=== PATIENT | male | born 1985 | race Caucasian/White ===

== ENCOUNTER 2021-07-27 03:57 | Inpatient (IN) ==
[2021-07-27] MEDS ORDERED: SODIUM CHLORIDE 0.9% 1000ML 1,000 ML IV ONE ×2 (04:42→05:55)
[2021-07-27] MEDS ORDERED: ACETAMINOPHEN 1,000 MG/100 ML VIAL IV STA (04:42)
[2021-07-27] MEDS ORDERED: ONDANSETRON INJ 2 MG/ML 2 ML VIAL IV STA ×2 (04:42→06:34)
[2021-07-27 04:58] LABS: Basophils # (auto) 0.01 K/uL (0-0.2); Basophils % (auto) 0.1 %; Hematocrit (blood only) 41.5 % (42-52); Hemoglobin 14.5 g/dL (14.0-18.0); Immature Granulocytes # (auto) 0.03 K/uL (0.00-0.02); Immature Granulocytes % (auto) 0.4 %; Lymphocytes # (auto) 0.47 K/uL (1.2-3.4); Lymphocytes % (auto) 6.5 %; Mean Corpuscular Hemoglobin 28.7 pg (25-34); Mean Corpuscular Hgb Conc 34.9 g/dL (32-36); Mean Corpuscular Volume 82.2 fL (80-100); Mean Platelet Volume 9.7 fL (7.4-10.4); Monocytes # (auto) 0.48 K/uL (0.11-0.59); Monocytes % (auto) 6.6 %; Neutrophils # (auto) 6.23 K/uL (1.4-6.5); Neutrophils % (auto) 86.4 %; Platelet Count 251 K/uL (130-400); RDW Coefficient of Variation 13.3 % (11.5-14.5); RDW Standard Deviation 40.4 fL (36.4-46.3); Red Blood Count 5.05 M/uL (4.7-6.1); White Blood Count 7.22 K/uL (4.8-10.8)
[2021-07-27 05:13] LABS: Alanine Aminotransferase 64 U/L (12-78); Albumin Level 3.6 gm/dl (3.4-5.0); Aspartate Aminotransferase 68 U/L (15-37); BUN Creatinine Ratio 12.9 (10-20); Blood Urea Nitrogen 15 mg/dl (7-18); Calcium 8.5 mg/dl (8.5-10.1); Carbon Dioxide 28 mmol/L (21-32); Chloride 95 mmol/L (98-107); Creatinine Clr Calc Pharmacy 109.8 ml/min; Est GFR (African American) 91.5 ml/min; Est GFR (Non-African American) 78.9 ml/min; Glucose 115 mg/dl (70-99); Magnesium 2.3 mg/dl (1.8-2.4); Potassium 3.3 mmol/L (3.5-5.1); Sodium 129 mmol/L (136-145)
[2021-07-27 05:18] LABS: Albumin Globulin Ratio 0.8 (0.9-2); Alkaline Phosphatase 64 U/L (45-117); Bilirubin,Total 0.7 mg/dl (0.2-1); Globulin 4.5 gm/dl (2.5-4.0); NT Pro B Type Natriuretic Pept 17 pg/ml (0-450); Total Protein 8.1 gm/dl (6.4-8.2); Troponin I < 0.015 ng/ml (0-0.045)
[2021-07-27] MEDS ORDERED: POTASSIUM CHLORIDE CRTAB 20 MEQ TABCR PO STA (05:55)
--- NOTE | 2021-07-27 05:59 | Emergency Department Note ---
History of Present Illness General Chief complaint: Shortness of Breath/Dyspnea Stated complaint: BREATHING DIFFICULTY Time Seen by Provider: 07/27/21 04:35 Source: patient Mode of arrival: EMS Limitations: no limitations History of Present Illness Provider complaint: nausea, vomiting, cough Onset (ago): week(s) 1 Maximum Pain Intensity: 5 Associated symptoms: + cough, + fever/chills, + headaches, + loss of appetite, + malaise, + nausea/vomiting, + shortness of breath and + weakness Treatments prior to arrival: NSAID This is 35-year-old male who presents to the emergency department due to concern for worsening symptoms related to known Covid. Patient states he was diagnosed officially on Friday but was symptomatic last . 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 He states in the intervening days his has also become sick. Patient states he started with a cough, nasal congestion, rhinorrhea, but since Friday has now had nausea, vomiting, and diarrhea. Patient states he has not eaten in greater than 24 hours and feels increasingly weak. Patient states he feels it is hard to breathe particularly with exertion or laying flat. Patient states he was given an inhaler and placed on steroids as an outpatient by his PCP. He states he does not feel these are helping. He denies leg swelling, rash or sores. Denies overt chest pain or abdominal pain. 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 Home Medications Medication Instructions Recorded Confirmed Type methylprednisolone 4 mg tablets in See Rx Instructions .ROUTE 07/23/21 07/27/21 Rx a dose pack (Medrol (Michael)) .COMPLEX #21 ea albuterol sulfate 90 mcg/actuation 2 inh INHALATION Q4H PRN #6.7 g 07/24/21 07/27/21 Rx aerosol inhaler allopurinol 300 mg tablet 300 mg PO DAILY 07/27/21 07/27/21 History escitalopram oxalate 10 mg tablet 10 mg PO DAILY 07/27/21 07/27/21 History lisinopril 10 mg tablet 10 mg PO DAILY 07/27/21 07/27/21 History meloxicam 15 mg tablet 15 mg PO DAILY 07/27/21 07/27/21 History omeprazole 20 mg capsule,delayed 230 mg PO DAILY 07/27/21 07/27/21 History release Allergies Allergy/AdvReac Type Severity Reaction Status Date / Time No Known Allergies Allergy Unverified 07/27/21 07:08 Past Med/Surg History Medical History Depression GERD (gastroesophageal reflux disease) Hypertension Surgical History S/P cholecystectomy Social History Smoking Status: Never smoker Hx Alcohol Use: No Hx Substance Use: No Preferred Language: Citizen Of [place] Communication Ability: Effective [place]ummer Required: No Beliefs That Will Affect Care: None Current Living Situation: Spouse Other Information That Helps Us Care for You: No Feels Safe at Home: Yes Safety Concerns: Feels Safe At This Time Assistive Devices: Oxygen - Continuous Review of Systems A total of 10 systems reviewed and were otherwise negative All systems reviewed & are unremarkable except as noted in HPI & below Physical Exam Vital Signs Vital Signs - 24 hr 07/27/21 04:05 07/27/21 04:06 07/27/21 05:00 Temperature 37.2 C Temperature Source Oral Pulse Rate 104 H 108 H 112 H Pulse Rate from SpO2 Sensor 104 H 111 H Respiratory Rate 22 20 14 Respiratory Effort / Characteristics Non-Labored Spontaneous Respiratory Depth Normal Respiratory Pattern Regular Blood Pressure 160/94 H 160/94 H 173/100 H Blood Pressure Mean 116 116 124 Blood Pressure Position Lying Pulse Oximetry 93 94 92 Oxygen Delivery Method Nasal Cannula Nasal Cannula Nasal Cannula Oxygen Flow Rate 1 1 1 Sepsis Recent Fever Within 48 Hours No Sepsis New/Unexplained Change in Mental Status N/A Sepsis Action Taken by Nursing No Action Required 07/27/21 06:00 07/27/21 07:00 Temperature 37.0 C Temperature Source Pulse Rate 102 H 95 H Pulse Rate from SpO2 Sensor 102 H 99 H Respiratory Rate 22 22 Respiratory Effort / Characteristics Respiratory Depth Respiratory Pattern Blood Pressure 134/72 Blood Pressure Mean 92 Blood Pressure Position Pulse Oximetry 93 93 Oxygen Delivery Method Oxymask Oxymask Oxygen Flow Rate 3 4 Sepsis Recent Fever Within 48 Hours Sepsis New/Unexplained Change in Mental Status Sepsis Action Taken by Nursing GENERAL: alert, unwell appearing, well nourished, no distress, non-toxic, BMI>40 EYE EXAM: normal conjunctiva, PERRL and EOM's grossly intact OROPHARYNX: no exudate, no erythema, lips, buccal mucosa, and tongue normal and mucous membranes are moist NECK: supple, no nuchal rigidity, no adenopathy, non-tender LUNGS: Clear to auscultation. Normal chest wall mechanics, no w/r/r HEART: no murmurs, S1 normal and S2 normal ABDOMEN: abdomen soft, non-tender, normo-active bowel sounds, no masses, no rebound or guarding. BACK: Back is symmetrical on inspection and there is no deformity, no midline tenderness, no CVA tenderness. SKIN: no rashes and no bruising UPPER EXTREMITIES: upper extremities are grossly normal. FROM, nml pulses b/l. LOWER EXTREMITIES: No pitting edema. FROM, nml pulses b/l. NEURO EXAM: Normal sensorium, cranial nerves II-XII grossly intact, normal speech, no gross weakness of arms, no gross weakness of legs. Gross sensation intact. Course Course 15: Pt states he feels more SOB and is still nauseated. Administered Medications Acetaminophen (Acetaminophen 325 Mg Tab) 650 mg PO Q4H PRN PRN Reason: pain/fever Stop: 08/26/21 10:59 Last Admin: 07/29/21 08:13 Dose: 650 mg Documented by: [id number] Admin: 07/29/21 02:39 Dose: 650 mg Documented by: [id number] Admin: 07/28/21 20:54 Dose: 650 mg Documented by: [id number] Admin: 07/27/21 14:13 Dose: 650 mg Documented by: [id number] Allopurinol (Allopurinol 300 Mg Tab) 300 mg PO DAILY [facility] Stop: 08/26/21 10:59 Last Admin: 07/29/21 08:14 Dose: 300 mg Documented by: [id number] Admin: 07/28/21 09:06 Dose: 300 mg Documented by: [id number] Admin: 07/27/21 14:14 Dose: 300 mg Documented by: [id number] Benzonatate (Benzonatate 100 Mg Capsule) 100 mg PO TID [facility] Stop: 08/26/21 13:59 Last Admin: 07/29/21 22:41 Dose: 100 mg Documented by: [id number] Admin: 07/29/21 13:54 Dose: 100 mg Documented by: [id number] Admin: 07/29/21 08:14 Dose: 100 mg Documented by: [id number] Admin: 07/28/21 20:54 Dose: 100 mg Documented by: [id number] Admin: 07/28/21 13:11 Dose: 100 mg Documented by: [id number] Admin: 07/28/21 09:06 Dose: 100 mg Documented by: [id number] Admin: 07/28/21 00:02 Dose: 100 mg Documented by: [id number] Admin: 07/27/21 14:14 Dose: 100 mg Documented by: [id number] Enoxaparin Sodium (Enoxaparin Inj 40 Mg/0.4 Ml Syr) 40 mg SQ Q12H JOSS Stop: 08/26/21 10:59 Last Admin: 07/29/21 22:48 Dose: 40 mg Documented by: [id number] Admin: 07/29/21 08:16 Dose: Not Given Documented by: [id number] Admin: 07/28/21 20:56 Dose: 40 mg Documented by: [id number] Admin: 07/28/21 09:07 Dose: 40 mg Documented by: [id number] Admin: 07/28/21 00:02 Dose: 40 mg Documented by: [id number] Admin: 07/27/21 14:14 Dose: 40 mg Documented by: [id number] Escitalopram Oxalate (Escitalopram Oxalate 10 Mg Tab) 10 mg PO DAILY JOSS Stop: 08/26/21 10:59 Last Admin: 07/29/21 08:14 Dose: 10 mg Documented by: [id number] Admin: 07/28/21 09:06 Dose: 10 mg Documented by: [id number] Admin: 07/27/21 14:14 Dose: 10 mg Documented by: [id number] Guaifenesin/Dextromethorphan (Guaifenesin/Dextrom Syrup 100mg/10mg 5ml Udc) 5 ml PO Q6H PRN PRN Reason: Cough Stop: 08/26/21 13:00 Last Admin: 07/29/21 05:55 Dose: 5 ml Documented by: [id number] Admin: 07/28/21 20:54 Dose: 5 ml Documented by: [id number] Admin: 07/28/21 01:07 Dose: 5 ml Documented by: [id number] Admin: 07/27/21 14:26 Dose: 5 ml Documented by: [id number] Remdesivir 100 mg/ Sodium (Chloride) 250 mls @ 250 mls/hr IV DAILY@1200 JOSS; Protocol Stop: 07/31/21 12:59 Last Infusion: 07/29/21 13:59 Dose: 0 mls/hr Documented by: [id number] Admin: 07/29/21 12:21 Dose: 250 mls/hr Documented by: [id number] Infusion: 07/28/21 13:39 Dose: 0 mls/hr Documented by: [id number] Admin: 07/28/21 12:13 Dose: 250 mls/hr Documented by: [id number] Dexamethasone 6 mg/ Syringe 1.5 mls @ 1 mls/min IV DAILY [facility] Stop: 08/06/21 08:59 Last Admin: 07/29/21 08:14 Dose: 1 mls/min Documented by: [id number] Admin: 07/28/21 09:06 Dose: 1 mls/min Documented by: [id number] Lactobacillus Acidoph/Casei/Rhamnos (Advanced Probiotic 1250 Mg Capsule) 1 cap PO TIDM JOSS Stop: 08/28/21 16:59 Last Admin: 07/29/21 19:32 Dose: 1 cap Documented by: [id number] Levalbuterol HCl (Levalbuterol Hcl 0.63 Mg/3 Ml Neb) 0.63 mg NEB QIDR PRN PRN Reason: Wheezing Stop: 08/26/21 10:59 Last Admin: 07/29/21 08:01 Dose: 0.63 mg Documented by: [id number] Lisinopril (Lisinopril 10 Mg Tab) 10 mg PO DAILY [facility] Stop: 08/26/21 10:59 Last Admin: 07/29/21 08:14 Dose: 10 mg Documented by: [id number] Admin: 07/28/21 09:06 Dose: 10 mg Documented by: [id number] Admin: 07/27/21 14:14 Dose: 10 mg Documented by: [id number] Loperamide HCl (Loperamide Hcl 2 Mg Cap) 2 mg PO Q6H PRN PRN Reason: Diarrhea Stop: 08/27/21 09:17 Last Admin: 07/28/21 10:41 Dose: 2 mg Documented by: [id number] Ondansetron HCl (Ondansetron Inj 2 Mg/Ml 2 Ml Vial) 4 mg IV Q6H PRN PRN Reason: Nausea Stop: 08/26/21 10:59 Last Admin: 07/28/21 20:55 Dose: 4 mg Documented by: [id number] Admin: 07/28/21 10:41 Dose: 4 mg Documented by: [id number] Admin: 07/27/21 22:38 Dose: 4 mg Documented by: [id number] Pantoprazole Sodium (Pantoprazole 40 Mg Tab) 40 mg PO DAILY JOSS Stop: 08/26/21 08:59 Last Admin: 07/29/21 08:14 Dose: 40 mg Documented by: [id number] Admin: 07/28/21 09:06 Dose: 40 mg Documented by: [id number] Admin: 07/27/21 09:14 Dose: 40 mg Documented by: [id number] Sodium Chloride (Sodium Chloride 0.9% 10ml Flush) 30 ml IV Q24H JOSS Stop: 07/31/21 11:01 Last Admin: 07/29/21 13:54 Dose: 30 ml Documented by: [id number] Admin: 07/28/21 12:14 Dose: 30 ml Documented by: [id number] Admin: 07/27/21 14:13 Dose: 30 ml Documented by: [id number] Tramadol HCl (Tramadol Hcl 50 Mg Tablet) 25 - 50 mg PO Q4H PRN PRN Reason: Pain Stop: 08/28/21 21:39 Last Admin: 07/29/21 22:40 Dose: 50 mg Documented by: [id number] Discontinued Medications Dexamethasone Sodium Phosphate (DexamethasonePf 10 Mg/Ml Vial) 6 mg IV NOW ONE Stop: 07/27/21 06:35 Last Admin: 07/27/21 07:17 Dose: 6 mg Documented by: [id number] Furosemide (Furosemide 40 Mg Tab) 40 mg PO ONE ONE Stop: 07/28/21 13:52 Last Admin: 07/28/21 14:48 Dose: 40 mg Documented by: [id number] Sodium Chloride (Nss 1000ml) 1,000 mls @ 999 mls/hr IV .Q1H1M ONE Stop: 07/27/21 05:42 Last Infusion: 07/27/21 06:32 Dose: 0 mls/hr Documented by: [id number] Admin: 07/27/21 05:21 Dose: 999 mls/hr Documented by: [id number] Acetaminophen (Ofirmev) 1,000 mg in 100 mls @ 400 mls/hr IV NOW STA Stop: 07/27/21 04:56 Last Infusion: 07/27/21 05:52 Dose: 0 mls/hr Documented by: [id number] Admin: 07/27/21 05:21 Dose: 400 mls/hr Documented by: [id number] Sodium Chloride (Nss 1000ml) 1,000 mls @ 999 mls/hr IV .Q1H1M ONE Stop: 07/27/21 06:55 Last Infusion: 07/27/21 07:11 Dose: 0 mls/hr Documented by: [id number] Admin: 07/27/21 06:11 Dose: 999 mls/hr Documented by: [id number] Remdesivir 200 mg/ Sodium (Chloride) 250 mls @ 125 mls/hr IV ONE STA; Protocol Stop: 07/27/21 10:32 Last Infusion: 07/27/21 14:39 Dose: 0 mls/hr Documented by: [id number] Admin: 07/27/21 09:15 Dose: 125 mls/hr Documented by: [id number] Potassium Chloride/Sodium Chloride (Normal Saline W/20 Meq Kcl) 20 meq in 1,000 mls @ 60 mls/hr IV .[id number] ONE Stop: 07/28/21 03:39 Last Infusion: 07/28/21 05:38 Dose: 0 mls/hr Documented by: [id number] Admin: 07/27/21 14:15 Dose: 60 mls/hr Documented by: [id number] Tocilizumab 800 mg/ Sodium (Chloride) 100 mls @ 100 mls/hr IV NOW ONE; Protocol Stop: 07/29/21 11:59 Last Infusion: 07/29/21 12:31 Dose: 0 mls/hr Documented by: [id number] Admin: 07/29/21 11:15 Dose: 100 mls/hr Documented by: [id number] Famotidine 20 mg/ Syringe 5 mls @ 2.5 mls/min IV 2145 ONE Stop: 07/29/21 21:46 Last Admin: 07/29/21 22:41 Dose: 2.5 mls/min Documented by: [id number] Ioversol (Optiray 320 125ml) 120 ml IV ONCE ONE Stop: 07/27/21 23:13 Last Admin: 07/27/21 23:07 Dose: 120 ml Documented by: [id number] Lactobacillus Acidophilus (Lactobacillus Acidophilus 1 Gm Pack) 1 gm PO TIDM JOSS Stop: 08/27/21 11:59 Last Admin: 07/29/21 16:58 Dose: Not Given Documented by: [id number] Admin: 07/29/21 13:54 Dose: 1 gm Documented by: [id number] Admin: 07/29/21 08:15 Dose: 1 gm Documented by: [id number] Admin: 07/28/21 17:29 Dose: 1 gm Documented by: [id number] Admin: 07/28/21 12:12 Dose: 1 gm Documented by: [id number] Levalbuterol HCl (Levalbuterol Hcl 0.63 Mg/3 Ml Neb) 0.63 mg NEB QIDR JOSS Stop: 08/26/21 10:59 Last Admin: 07/28/21 07:11 Dose: 0.63 mg Documented by: [id number] Admin: 07/27/21 20:10 Dose: 0.63 mg Documented by: [id number] Admin: 07/27/21 16:46 Dose: 0.63 mg Documented by: [id number] Admin: 07/27/21 16:46 Dose: Not Given Documented by: [id number] Melatonin (Melatonin 3 Mg Tab) Confirm Administered Dose 3 mg PO .STK-MED ONE Stop: 07/29/21 22:54 Last Admin: 07/29/21 22:54 Dose: 3 mg Documented by: [id number] Morphine Sulfate (Morphine Sulfate 2 Mg/Ml Carp) 2 mg IV NOW STA Stop: 07/29/21 19:17 Last Admin: 07/29/21 19:32 Dose: 2 mg Documented by: [id number] Ondansetron HCl (Ondansetron Inj 2 Mg/Ml 2 Ml Vial) 4 mg IV NOW STA Stop: 07/27/21 04:43 Last Admin: 07/27/21 05:21 Dose: 4 mg Documented by: [id number] Ondansetron HCl (Ondansetron Inj 2 Mg/Ml 2 Ml Vial) 4 mg IV NOW STA Stop: 07/27/21 06:35 Last Admin: 07/27/21 07:17 Dose: 4 mg Documented by: [id number] Potassium Chloride (Potassium Chloride Crtab 20 Meq Tabcr) 40 meq PO NOW STA Stop: 07/27/21 05:56 Last Admin: 07/27/21 06:06 Dose: 40 meq Documented by: [id number] Tramadol HCl (Tramadol Hcl 50 Mg Tablet) 50 mg PO ONE ONE Stop: 07/29/21 16:58 Last Admin: 07/29/21 17:03 Dose: 50 mg Documented by: [id number] Medical Decision Making Differential Diagnosis Differential: Gastroenteritis, Food Borne, Esophageal Perforation, , Electrolyte Abnormality, Dehydration, Intraabdominal Infection, UTI/Pyelonephritis, Bowel Obstruction, Biliary Pathology, amongst other pathology entertained. Medical Records Attestation: I reviewed the patient's medical records. Home Medications Current Medication List: was personally reviewed by me Laboratory Data Attestation: I reviewed the patient's lab results. Result diagrams: 07/29/21 05:40 07/29/21 05:40 Lab Results 07/27/21 07/27/21 07/27/21 Range/Units 04:13 04:13 04:13 WBC 7.22 (4.8-10.8) K/uL RBC 5.05 (4.7-6.1) M/uL Hgb 14.5 (14.0-18.0) g/dL Hct 41.5 L (42-52) % MCV 82.2 (80-100) fL MCH 28.7 (25-34) pg MCHC 34.9 (32-36) g/dL RDW Std Deviation 40.4 (36.4-46.3) fL RDW Coeff of Zulema 13.3 (11.5-14.5) % Plt Count 251 (130-400) K/uL MPV 9.7 (7.4-10.4) fL Immature Gran % (Auto) 0.4 % Neut % (Auto) 86.4 % Lymph % (Auto) 6.5 % Winkler % (Auto) 6.6 % Eos % (Auto) 0.0 % Baso % (Auto) 0.1 % Neut # (Auto) 6.23 (1.4-6.5) K/uL Lymph # (Auto) 0.47 L (1.2-3.4) K/uL Winkler # (Auto) 0.48 (0.11-0.59) K/uL Eos # (Auto) 0.00 (0-0.5) K/uL Baso # (Auto) 0.01 (0-0.2) K/uL Immature Gran # (Auto) 0.03 H (0.00-0.02) K/uL D-Dimer (0-500) ug/L FEU Sodium 129 L (136-145) mmol/L Potassium 3.3 L (3.5-5.1) mmol/L Chloride 95 L (98-107) mmol/L Carbon Dioxide 28 (21-32) mmol/L Anion Gap 6.0 (3-11) BUN 15 (7-18) mg/dl Creatinine 1.18 (0.6-1.4) mg/dl Est Cr Clr Drug Dosing 109.8 ml/min Est GFR ( Amer) 91.5 ml/min Est GFR (Non-Af Amer) 78.9 ml/min BUN/Creatinine Ratio 12.9 (10-20) Glucose 115 H (70-99) mg/dl Calcium 8.5 (8.5-10.1) mg/dl Magnesium 2.3 (1.8-2.4) mg/dl Ferritin 1437.5 H (8-388) ng/ml Total Bilirubin 0.7 (0.2-1) mg/dl AST 68 H (15-37) U/L ALT 64 (12-78) U/L Alkaline Phosphatase 64 (45-117) U/L Troponin I < 0.015 (0-0.045) ng/ml C-Reactive Protein 8.66 H (0-0.29) mg/dl NT-Pro-B Natriuret Pep 17 (0-450) pg/ml Total Protein 8.1 (6.4-8.2) gm/dl Albumin 3.6 (3.4-5.0) gm/dl Globulin 4.5 H (2.5-4.0) gm/dl Albumin/Globulin Ratio 0.8 L (0.9-2) Procalcitonin (0-0.5) ng/ml COVID-19 Eval Order SARS-CoV-2 (PCR) (Negative) 07/27/21 07/27/21 07/27/21 Range/Units 04:13 04:13 07:21 WBC (4.8-10.8) K/uL RBC (4.7-6.1) M/uL Hgb (14.0-18.0) g/dL Hct (42-52) % MCV (80-100) fL MCH (25-34) pg MCHC (32-36) g/dL RDW Std Deviation (36.4-46.3) fL RDW Coeff of Zulema (11.5-14.5) % Plt Count (130-400) K/uL MPV (7.4-10.4) fL Immature Gran % (Auto) % Neut % (Auto) % Lymph % (Auto) % Winkler % (Auto) % Eos % (Auto) % Baso % (Auto) % Neut # (Auto) (1.4-6.5) K/uL Lymph # (Auto) (1.2-3.4) K/uL Winkler # (Auto) (0.11-0.59) K/uL Eos # (Auto) (0-0.5) K/uL Baso # (Auto) (0-0.2) K/uL Immature Gran # (Auto) (0.00-0.02) K/uL D-Dimer 1130 H* (0-500) ug/L FEU Sodium (136-145) mmol/L Potassium (3.5-5.1) mmol/L Chloride (98-107) mmol/L Carbon Dioxide (21-32) mmol/L Anion Gap (3-11) BUN (7-18) mg/dl Creatinine (0.6-1.4) mg/dl Est Cr Clr Drug Dosing ml/min Est GFR ( Amer) ml/min Est GFR (Non-Af Amer) ml/min BUN/Creatinine Ratio (10-20) Glucose (70-99) mg/dl Calcium (8.5-10.1) mg/dl Magnesium (1.8-2.4) mg/dl Ferritin (8-388) ng/ml Total Bilirubin (0.2-1) mg/dl AST (15-37) U/L ALT (12-78) U/L Alkaline Phosphatase (45-117) U/L Troponin I (0-0.045) ng/ml C-Reactive Protein (0-0.29) mg/dl NT-Pro-B Natriuret Pep (0-450) pg/ml Total Protein (6.4-8.2) gm/dl Albumin (3.4-5.0) gm/dl Globulin (2.5-4.0) gm/dl Albumin/Globulin Ratio (0.9-2) Procalcitonin 0.05 (0-0.5) ng/ml COVID-19 Eval Order Covid19 at [facility] SARS-CoV-2 (PCR) (Negative) 07/27/21 Range/Units 07:21 WBC (4.8-10.8) K/uL RBC (4.7-6.1) M/uL Hgb (14.0-18.0) g/dL Hct (42-52) % MCV (80-100) fL MCH (25-34) pg MCHC (32-36) g/dL RDW Std Deviation (36.4-46.3) fL RDW Coeff of Zulema (11.5-14.5) % Plt Count (130-400) K/uL MPV (7.4-10.4) fL Immature Gran % (Auto) % Neut % (Auto) % Lymph % (Auto) % Winkler % (Auto) % Eos % (Auto) % Baso % (Auto) % Neut # (Auto) (1.4-6.5) K/uL Lymph # (Auto) (1.2-3.4) K/uL Winkler # (Auto) (0.11-0.59) K/uL Eos # (Auto) (0-0.5) K/uL Baso # (Auto) (0-0.2) K/uL Immature Gran # (Auto) (0.00-0.02) K/uL D-Dimer (0-500) ug/L FEU Sodium (136-145) mmol/L Potassium (3.5-5.1) mmol/L Chloride (98-107) mmol/L Carbon Dioxide (21-32) mmol/L Anion Gap (3-11) BUN (7-18) mg/dl Creatinine (0.6-1.4) mg/dl Est Cr Clr Drug Dosing ml/min Est GFR ( Amer) ml/min Est GFR (Non-Af Amer) ml/min BUN/Creatinine Ratio (10-20) Glucose (70-99) mg/dl Calcium (8.5-10.1) mg/dl Magnesium (1.8-2.4) mg/dl Ferritin (8-388) ng/ml Total Bilirubin (0.2-1) mg/dl AST (15-37) U/L ALT (12-78) U/L Alkaline Phosphatase (45-117) U/L Troponin I (0-0.045) ng/ml C-Reactive Protein (0-0.29) mg/dl NT-Pro-B Natriuret Pep (0-450) pg/ml Total Protein (6.4-8.2) gm/dl Albumin (3.4-5.0) gm/dl Globulin (2.5-4.0) gm/dl Albumin/Globulin Ratio (0.9-2) Procalcitonin (0-0.5) ng/ml COVID-19 Eval Order SARS-CoV-2 (PCR) POSITIVE A* (Negative) Imaging Data My Impression: X-ray: I interpreted the following studies. Chest: A single view study of the chest was reviewed and was negative for cardiomegaly, effusion, pulmonary edema, or wide mediastinum. Scattered b/l infiltrates. Radiologist's Impression: Chest X-Ray 07/27/21 04:42 SINGLE VIEW CHEST CLINICAL HISTORY: Cough. Covid. FINDINGS: An AP, portable, upright chest radiograph is compared to study dated 07/23/2021. The cardiomediastinal silhouette is unremarkable. Multifocal airspace consolidation is seen throughout both lungs. This has significantly worsened as compared to 07/23/2021. No large pleural effusion or pneumothorax is seen. The bony thorax is grossly intact. IMPRESSION: Multifocal airspace consolidation is consistent with the reported history of a viral pneumonia. This has significantly worsened as compared to 07/23/2021. ACT 112: Negative or not required by law. Electronically signed by: Syed Waite M.D. 07/27/2021 7:10 AM ECG Data Attestation: I personally reviewed and interpreted this ECG as follows: Indication: + nausea and + vomiting Rate (beats per minute): 103 Rhythm: + normal sinus ECG Intervals/blocks: + Normal QRS and + Normal QT ECG [place]on: + Normal ECG ST segments: + Normal ST segments MDM Narrative This is an ill appearing 35 yo with known COVID who presents due to worsening symptoms and and concern for dehydration. Labs with mild abnormalities noted, CXR consistent with COVID pneumonia. VS stable however patient tachycardic and complained of feeling SOB. Sats initially around 90% on RA, however pt felt markedly improved with oxygen in place. 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 Given weakness and reported increased VAIL, ambulatory test of pulse ox was not performed. I did discuss all results with the patient at bedside and due to concern for condition and increased SOB and oxygen requirement, will discuss with hospitalist for inpatient treatment. An order was placed for continuous cardiac monitoring. The monitor shows a rate of _106_ with sinus tachycardia__ rhythm. Impression & Plan Weakness, Dyspnea, Dehydration, COVID-19, Acute hyponatremia, Hypokalemia Discharge Plan Visit Data Chief Complaint: Shortness of Breath/Dyspnea Stated Complaint: BREATHING DIFFICULTY ED Provider: Uzma Gipson Discharge Problem: Weakness, Dyspnea, Dehydration, COVID-19, Acute hyponatremia, Hypokalemia Patient Disposition: Admitted As Inpatient Discharge Instructions Interventions: ED Discharge Assessment Last Done: 07/27/21 10:50 Discharge Problem: Dyspnea Qualifiers: Dyspnea type: shortness of breath Qualified Code(s): R06.02 - Shortness of breath
[2021-07-27] MEDS ORDERED: dexAMETHasone**PF** 10 MG/ML VIAL IV ONE (06:34)
--- NOTE | 2021-07-27 07:12 | XRay Report ---
SINGLE VIEW CHEST CLINICAL HISTORY: Cough. Covid. FINDINGS: An AP, portable, upright chest radiograph is compared to study dated 07/23/2021. The cardio mediastinal silhouette is unremarkable. Multifocal airspace consolidation is seen throughout both krista gs. This has significantly worsened as compared to 07/23/2021. No large pleural effusion or pneumotho rax is seen. The bony thorax is grossly intact. IMPRESSION: Multifocal airspace consolidation is consistent with the reported history of a viral pneu monia. This has significantly worsened as compared to 07/23/2021. ACT 112: Negative or not required by law. Electronically signed by: Syed Waite M.D. 07/27/2021 7:10 AM
--- NOTE | 2021-07-27 08:09 | History & Physical Report ---
Date of Service July 27, 2021 Assessment & Plan (1) COVID: Plan: Multifocal COVID pneumonia Hypoxia COVID Screen:+ on 07/23/21 CXR:Multifocal airspace consolidation is consistent with the reported history of a viral pneumonia. This has significantly worsened as compared to 07/23/2021. Procalcitonin:0.05 Troponin negative CRP:8.66 Ferritin: 1437 D-Dimer:1130 Blood Cultures obtained Start on Remdesivir, Dexamethasone Day #1 Isolation precautions--Airborne/Contact Encourage frequent Proning Lasix, Albuterol PRN Continue Supplemental Oxygen as needed DVT prophylaxis: Lovenox Monitor LFTs, renal function while on Remdesivir CT for PE pending Pulmonary toilet Hyponatremia Hypokalemia Hypochloremia Secondary to poor oral intake, GI losses Stool studies to rule out infection Replace electrolytes as needed Monitor Received IV fluids GERD Continue PPI Depression Continue home medication Gout Continue allopurinol Hypertension Continue lisinopril DVT Px: Lovenox SQ CODE STATUS Full code History of Present Illness Chief Complaint: Cough, shortness of breath Primary Care Provider: NO PCP Patient is a 35-year-old male with history of GERD, hypertension, GERD, depression and other medical problems presents with history of worsening cough, shortness of breath since about 1 week duration. Patient reports associated fever since Friday which currently resolved. He also states having nausea, vomiting, diarrhea since Friday. He was tested positive for Covid on 07/23/20 and was prescribed a Medrol Dosepak and an inhaler which he has been using since 4 days duration. Given worsening of his symptoms, patient came to ED for further evaluation. He admits to have contact with his who is positive for Covid as well. She states having pleuritic kind of chest pain associated with deep breathing and cough. Also reports headache but no change in vision, loss of consciousness, neck stiffness. He feels tired and has generalized weakness, runny nose and very poor appetite with loss of taste since 1 week duration. Denies any history of palpitations, dizziness, pedal edema, hemoptysis, head trauma, abdominal pain, blood in stools, dysuria, hematuria. Allergies Allergy/AdvReac Type Severity Reaction Status Date / Time No Known Allergies Allergy Unverified 07/27/21 07:08 Home Medications Medication Instructions Recorded Confirmed Type methylprednisolone 4 mg tablets in See Rx Instructions .ROUTE 07/23/21 07/27/21 Rx a dose pack (Medrol (Michael)) .COMPLEX #21 ea albuterol sulfate 90 mcg/actuation 2 inh INHALATION Q4H PRN #6.7 g 07/24/21 07/27/21 Rx aerosol inhaler allopurinol 300 mg tablet 300 mg PO DAILY 07/27/21 07/27/21 History escitalopram oxalate 10 mg tablet 10 mg PO DAILY 07/27/21 07/27/21 History lisinopril 10 mg tablet 10 mg PO DAILY 07/27/21 07/27/21 History meloxicam 15 mg tablet 15 mg PO DAILY 07/27/21 07/27/21 History omeprazole 20 mg capsule,delayed 230 mg PO DAILY 07/27/21 07/27/21 History release Past Med/Surg History Medical History Depression GERD (gastroesophageal reflux disease) Hypertension Surgical History S/P cholecystectomy Social History Smoking Status: Never smoker Hx Alcohol Use: No Hx Substance Use: No Preferred Language: Hungarian Communication Ability: Effective [employer] Required: No Beliefs That Will Affect Care: None Current Living Situation: Spouse Other Information That Helps Us Care for You: No Feels Safe at Home: Yes Safety Concerns: Feels Safe At This Time Review of Systems Review of Systems: All systems reviewed & are unremarkable except as noted in Subjective Physical Exam Physical Exam: Physical Exam: Vitals signs as noted above General Appearance:Morbidly Obese, no apparent distress Head: normocephalic, Atraumatic Eyes: normal inspection, EOMI Neck: supple, Trachea midline Respiratory/Chest: Decreased breath sounds, CTA, No accessory muscle use Cardiovascular: S1, S2, No murmur Abdomen/GI:Soft, Non tender, Bowel sounds present Extremities/Musculoskeletal:normal inspection, no edema Neurologic/Psych:AAOX3, grossly no focal neurological deficits Skin: normal color, warm Results & Data Results & Data ([facility]) Vital Signs (Past 12 Hours) Vital Signs Temp Pulse Resp BP Pulse Ox 07/27/21 07:00 37.0 C 95 H 22 134/72 93 07/27/21 06:00 102 H 22 93 07/27/21 05:00 112 H 14 173/100 H 92 07/27/21 04:06 37.2 C 108 H 20 160/94 H 94 07/27/21 04:05 104 H 22 160/94 H 93 Laboratory Results Short CBC 07/27/21 Range/Units 04:13 WBC 7.22 (4.8-10.8) K/uL Hgb 14.5 (14.0-18.0) g/dL Hct 41.5 L (42-52) % Plt Count 251 (130-400) K/uL BMP 07/27/21 04:13 Sodium 129 L Potassium 3.3 L Chloride 95 L Carbon Dioxide 28 BUN 15 Creatinine 1.18 Glucose 115 H Calcium 8.5 Cardiac Enzymes 07/27/21 07/27/21 Range/Units 04:13 13:02 Troponin I < 0.015 < 0.015 (0-0.045) ng/ml Liver Function 07/27/21 Range/Units 04:13 Total Bilirubin 0.7 (0.2-1) mg/dl AST 68 H (15-37) U/L ALT 64 (12-78) U/L Alkaline Phosphatase 64 (45-117) U/L Albumin 3.6 (3.4-5.0) gm/dl Diagnostic Findings CXR: Multifocal airspace consolidation is consistent with the reported history of a viral pneumonia. This has significantly worsened as compared to 07/23/2021.
[2021-07-27] MEDS ORDERED: REMDESIVIR 200 MG in SODIUM CHLORIDE 0.9% 210 ML IV STA (08:33)
[2021-07-27] MEDS: PANTOprazole 40 MG TAB PO SCH (09:14)
[2021-07-27 09:42] LABS: D Dimer 1130 ug/L FEU (0-500)
[2021-07-27 09:52] LABS: C Reactive Protein 8.66 mg/dl (0-0.29); Ferritin 1437.5 ng/ml (8-388)
--- NOTE | 2021-07-27 10:59 | Electrocardiogram Report ---
Test Reason : Blood Pressure : / mmHG Vent. Rate : 103 BPM Atrial Rate : 103 BPM P-R Int : 144 ms QRS Dur : 086 ms QT Int : 324 ms P-R-T Axes : 042 052 009 degrees QTc Int : 424 ms Sinus tachycardia Otherwise normal ECG No previous ECGs available Confirmed by Lorenzo Galvez ([id number]) on 07/27/2021 10:58:53 AM Referred By: REFERRED SELF Confirmed By:Lorenzo Galvez
[2021-07-27] MEDS ORDERED: NSS + 20MEQ KCL 20 MEQ/1,000 ML BAG IV ONE (11:00)
[2021-07-27] MEDS ORDERED: POLYETHYLENE (MIRALAX) 17 GM PACK PO PRN (11:00)
[2021-07-27] MEDS: SODIUM CHLORIDE 0.9% 10ML FLUSH IV SCH (14:13)
[2021-07-27] MEDS: ACETAMINOPHEN 325 MG TAB PO PRN (14:13)
[2021-07-27] MEDS: ENOXAPARIN INJ 40 MG/0.4 ML SYR SQ SCH (14:14)
[2021-07-27] MEDS: ESCITALOPRAM OXALATE 10 MG TAB PO SCH (14:14)
[2021-07-27] MEDS: allopurinoL 300 MG TAB PO SCH (14:14)
[2021-07-27] MEDS: BENZONATATE 100 MG CAPSULE PO SCH (14:14)
[2021-07-27] MEDS: lisinopril 10 MG TAB PO SCH (14:14)
[2021-07-27] MEDS: guaiFENesin/DEXTROM SYRUP 100MG/10MG 5ML UDC PO PRN (14:26)
--- NOTE | 2021-07-27 15:19 | Electrocardiogram Report ---
Test Reason : Blood Pressure : / mmHG Vent. Rate : 095 BPM Atrial Rate : 095 BPM P-R Int : 146 ms QRS Dur : 088 ms QT Int : 344 ms P-R-T Axes : 050 064 011 degrees QTc Int : 432 ms Normal sinus rhythm Normal ECG When compared with ECG of 27-JUL-2021 04:02, No significant change was found Confirmed by Kelvin Carmona ([id number]) on 07/27/2021 3:18:37 PM Referred By: REFERRED SELF Confirmed By:Kelvin Carmona
[2021-07-27] MEDS: LEVALBUTEROL HCL 0.63 MG/3 ML NEB NEB SCH ×3 (16:46→20:10)
[2021-07-27] MEDS: ONDANSETRON INJ 2 MG/ML 2 ML VIAL IV PRN (22:38)
[2021-07-27] MEDS ORDERED: OPTIRAY 320 125ml IV ONE (23:12)
[2021-07-28] MEDS: BENZONATATE 100 MG CAPSULE PO SCH ×4 (00:02→20:54)
[2021-07-28] MEDS: ENOXAPARIN INJ 40 MG/0.4 ML SYR SQ SCH ×3 (00:02→20:56)
[2021-07-28] MEDS: guaiFENesin/DEXTROM SYRUP 100MG/10MG 5ML UDC PO PRN ×2 (01:07→20:54)
[2021-07-28 06:32] LABS: Hemoglobin 13.3 g/dL (14.0-18.0); Mean Corpuscular Hemoglobin 29.3 pg (25-34); Mean Corpuscular Hgb Conc 35.9 g/dL (32-36); Mean Corpuscular Volume 81.5 fL (80-100); Mean Platelet Volume 9.4 fL (7.4-10.4); Platelet Count 297 K/uL (130-400); RDW Coefficient of Variation 13.6 % (11.5-14.5); RDW Standard Deviation 41.2 fL (36.4-46.3); Red Blood Count 4.54 M/uL (4.7-6.1); White Blood Count 6.72 K/uL (4.8-10.8)
[2021-07-28 07:05] LABS: BUN Creatinine Ratio 14.9 (10-20); C Reactive Protein 10.7 mg/dl (0-0.29); Calcium 8.6 mg/dl (8.5-10.1); Creatinine Clr Calc Pharmacy 144.2 ml/min; Est GFR (African American) 127.5 ml/min; Magnesium 2.5 mg/dl (1.8-2.4); Potassium 3.6 mmol/L (3.5-5.1)
[2021-07-28] MEDS: LEVALBUTEROL HCL 0.63 MG/3 ML NEB NEB SCH (07:11)
[2021-07-28] MEDS ORDERED: LEVALBUTEROL HCL 0.63 MG/3 ML NEB NEB PRN (08:27)
--- NOTE | 2021-07-28 08:44 | CT Scan Report ---
CT ANGIOGRAPHY OF THE CHEST, PULMONARY EMBOLUS PROTOCOL CLINICAL HISTORY: Shortness of breath. Covid. Evaluate for pulmonary embolus. COMPARISON STUDY: Chest radiograph July 23, 2021 and July 27, 2021. TECHNIQUE: Following IV administration of 120 mL of Optiray, helical axial images of the chest were o btained utilizing the pulmonary embolus protocol. Maximal intensity projections and sagittal and cor onal reformats were viewed on an independent 3D workstation. IV contrast was administered without co mplication. Automated exposure control was utilized for the study. A dose lowering technique was ut ilized adhering to the principles of ALARA. CT DOSE: 908.11 mGy.cm FINDINGS: No pulmonary emboli are identified although the segmental and subsegmental pulmonary arter ies are suboptimally assessed on this exam. There is no thoracic aortic dissection. No pericardial ef fusion is present. Size of the heart is at the upper limits of normal. There are prominent mediastina l and bilateral hilar lymph nodes. No pneumothorax or pleural effusion is noted. Extensive multifocal groundglass opacities with developing consolidation within the lungs are noted. There is hepatic kimberly atosis. IMPRESSION: 1. No pulmonary emboli identified although segmental and subsegmental pulmonary arteries suboptimally assessed due to respiratory motion. 2. Extensive multifocal groundglass opacities with developing consolidation within the lungs consiste nt with viral pneumonia. 3. Hepatic steatosis. ACT 112: Negative or not required by law. Electronically signed by: Alejandro Corley M.D. 07/28/2021 8:43 AM
[2021-07-28] MEDS: ESCITALOPRAM OXALATE 10 MG TAB PO SCH (09:06)
[2021-07-28] MEDS: dexAMETHasone 6 MG in SYRINGE 0 ML IV SCH (09:06)
[2021-07-28] MEDS: allopurinoL 300 MG TAB PO SCH (09:06)
[2021-07-28] MEDS: lisinopril 10 MG TAB PO SCH (09:06)
[2021-07-28] MEDS: PANTOprazole 40 MG TAB PO SCH (09:06)
[2021-07-28] MEDS ORDERED: LOPERAMIDE HCL 2 MG CAP PO PRN (09:18)
[2021-07-28] MEDS: ONDANSETRON INJ 2 MG/ML 2 ML VIAL IV PRN ×2 (10:41→20:55)
[2021-07-28] MEDS: LACTOBACILLUS ACIDOPHILUS 1 GM PACK PO SCH ×2 (12:12→17:29)
[2021-07-28] MEDS: REMDESIVIR 100 MG in SODIUM CHLORIDE 0.9% 230 ML IV SCH (12:13)
[2021-07-28] MEDS: SODIUM CHLORIDE 0.9% 10ML FLUSH IV SCH (12:14)
[2021-07-28] MEDS ORDERED: FUROSEMIDE 40 MG TAB PO ONE (13:51)
--- NOTE | 2021-07-28 15:52 | Hospitalist Progress Note ---
Date of Service July 28, 2021 Assessment & Plan (1) COVID: Plan: Multifocal COVID pneumonia Hypoxia COVID Screen:+ on 07/23/21 CTA:Extensive multifocal groundglass opacities with developing consolidation within the lungs consistent with viral pneumonia. No PE. Procalcitonin:0.05 Troponin negative CRP:8.66 Ferritin: 1437 D-Dimer:1130 Blood Cultures No growth to date Continue Remdesivir, Dexamethasone Day #2 Isolation precautions--Airborne/Contact Encourage frequent Proning Lasix, Albuterol PRN Continue Supplemental Oxygen as needed DVT prophylaxis: Lovenox Monitor LFTs, renal function while on Remdesivir Pulmonary toilet Give a small dose of Lasix to keep him on right side Hyponatremia Hypokalemia Hypochloremia Secondary to poor oral intake, GI losses Stool studies negative Replace electrolytes as needed Monitor Received IV fluids GERD Continue PPI Depression Continue home medication Gout Continue allopurinol Hypertension Continue lisinopril DVT Px: Lovenox SQ CODE STATUS Full code Admission and Anticipated Discharge Date Admission Date: July 27, 2021 Subjective Patient is seen and examined at bedside Pleuritic chest pain resolved Diarrhea slowly improving Less cough, dyspnea today Saturating low 90s on 8 L supplemental oxygen Offers no other complaints Review of Systems Review of Systems: All systems reviewed & are unremarkable except as noted in Subjective Physical Exam Physical Exam: Physical Exam: Vitals signs as noted above General Appearance:Morbidly Obese, no apparent distress Head: normocephalic, Atraumatic Eyes: normal inspection, EOMI Neck: supple, Trachea midline Respiratory/Chest: Decreased breath sounds, minimal basal crackles Cardiovascular: S1, S2, No murmur Abdomen/GI:Soft, Non tender, Bowel sounds present Extremities/Musculoskeletal:normal inspection, no edema Neurologic/Psych:AAOX3, grossly no focal neurological deficits Skin: normal color, warm Results & Data Results & Data ([facility]) Vital Signs (Past 12 Hours) Vital Signs Temp Pulse Pulse Resp BP Pulse Ox 07/28/21 12:09 36.6 C 82 15 129/78 92 07/28/21 07:58 36.9 C 88 24 154/66 H 93 07/28/21 07:12 89 26 H 87 L 07/28/21 05:23 95 H 07/28/21 04:11 36.5 C 90 24 125/66 94 Laboratory Results Short CBC 07/28/21 Range/Units 05:51 WBC 6.72 (4.8-10.8) K/uL Hgb 13.3 L (14.0-18.0) g/dL Hct 37.0 L (42-52) % Plt Count 297 (130-400) K/uL [facility] 07/28/21 05:51 Sodium 132 L Potassium 3.6 Chloride 100 Carbon Dioxide 25 BUN 13 Creatinine 0.89 Glucose 101 H Calcium 8.6
[2021-07-28] MEDS: ACETAMINOPHEN 325 MG TAB PO PRN (20:54)
[2021-07-29] MEDS: ACETAMINOPHEN 325 MG TAB PO PRN ×2 (02:39→08:13)
[2021-07-29] MEDS: guaiFENesin/DEXTROM SYRUP 100MG/10MG 5ML UDC PO PRN (05:55)
[2021-07-29 06:16] LABS: Hematocrit (blood only) 39.5 % (42-52); Hemoglobin 13.6 g/dL (14.0-18.0); Mean Corpuscular Hemoglobin 28.8 pg (25-34); Mean Corpuscular Hgb Conc 34.4 g/dL (32-36); Mean Corpuscular Volume 83.5 fL (80-100); Mean Platelet Volume 9.5 fL (7.4-10.4); Platelet Count 325 K/uL (130-400); RDW Coefficient of Variation 13.6 % (11.5-14.5); RDW Standard Deviation 41.4 fL (36.4-46.3); Red Blood Count 4.73 M/uL (4.7-6.1); White Blood Count 9.47 K/uL (4.8-10.8)
[2021-07-29 06:51] LABS: BUN Creatinine Ratio 17.1 (10-20); Calcium 8.7 mg/dl (8.5-10.1); Creatinine Clr Calc Pharmacy 142.8 ml/min; Est GFR (African American) 126.9 ml/min; Est GFR (Non-African American) 109.5 ml/min; Magnesium 2.8 mg/dl (1.8-2.4); Potassium 3.7 mmol/L (3.5-5.1)
[2021-07-29] MEDS: BENZONATATE 100 MG CAPSULE PO SCH ×3 (08:14→22:41)
[2021-07-29] MEDS: lisinopril 10 MG TAB PO SCH (08:14)
[2021-07-29] MEDS: ESCITALOPRAM OXALATE 10 MG TAB PO SCH (08:14)
[2021-07-29] MEDS: dexAMETHasone 6 MG in SYRINGE 0 ML IV SCH (08:14)
[2021-07-29] MEDS: allopurinoL 300 MG TAB PO SCH (08:14)
[2021-07-29] MEDS: PANTOprazole 40 MG TAB PO SCH (08:14)
[2021-07-29] MEDS: LACTOBACILLUS ACIDOPHILUS 1 GM PACK PO SCH ×3 (08:15→16:58)
[2021-07-29] MEDS: ENOXAPARIN INJ 40 MG/0.4 ML SYR SQ SCH ×2 (08:16→22:48)
[2021-07-29 08:42] LABS: HCO3 ABG 26 mmol/L (19-24); Oxygen Saturation ABG 90.8 % (90-95); PCO2 ABG 39 mmHg (35-46); PO2 ABG 57 mmHg (80-95); pH ABG 7.44 (7.35-7.45)
[2021-07-29 08:56] LABS: Allen Test Pos (Pos)
--- NOTE | 2021-07-29 09:50 | XRay Report ---
XR chest 1V portable CLINICAL HISTORY: COVID TECHNIQUE: Single frontal radiograph of the chest was obtained. Comparison: Comparison is made to chest one view 07/27/2021 FINDINGS: No lines and tubes are seen. The cardiomediastinal silhouette is obscured. Lungs are underinflated. M ultifocal airspace opacities are seen, increased from prior exam. No evidence of pleural effusion or pneumothorax. IMPRESSION: Diffuse airspace opacities, increased from prior exam, compatible with pneumonia. ACT 112: Negative or not required by law. Electronically signed by: Stephen Deleon M.D. 07/29/2021 9:48 AM
[2021-07-29] MEDS ORDERED: TOCILIZUMAB 800 MG in 0.9 % SODIUM CHLORIDE 60 ML IV ONE (11:00)
[2021-07-29] MEDS: REMDESIVIR 100 MG in SODIUM CHLORIDE 0.9% 230 ML IV SCH (12:21)
--- NOTE | 2021-07-29 13:16 | Pulmonary Consultation ---
Date of Consultation July 29, 2021 Assessment & Plan (1) COVID: (2) Acute hypoxemic respiratory failure: Impression: 35-year-old male without significant prior medical history admitted with Covid pneumonitis which is progressed significantly over the last 12 hours to the point that he is now on high flow. He is participating in self proning. He received remdesivir although he is 10 days out from his symptoms so I doubt it would offer him any clinical benefit at this point time. His CRP was elevated and he does meet criteria for Tocilizumab. Recommendations: 1. Acute hypoxemic respiratory failure: Continue high flow oxygen. Could consider BiPAP as needed but early intubation may be beneficial if the patient demonstrates increased work of breathing or respiratory muscle fatigue. If he progresses to intubation mechanical ventilation we have a low threshold for reaching out to tertiary facilities for consideration of ECMO. Discussed case with the current plant clerk as well as with the charge nurse on the floor. The patient will be moved to a room which is capable of critical care support. Will also consult critical care services in the event the patient should continue to decline. 2. Covid pneumonitis: Discontinue remdesivir as he is outside the window to offer any clinical benefit. Continue dexamethasone 6 mg daily. Meets criteria for Tocilizumab. Discussed with pharmacy and this will be initiated. 3. Recommend the patient continue to self proning is much as possible. If he fails and requires intubation mechanical ventilation, neuromuscular blockade and proning may be of benefit although review of his CAT scan does demonstrate that his airspace opacity is fairly dense in the posterior lung field so I am unclear how much improvement in his shunt fraction he will experience with proning. 4. Management of the patient's other medical issues is deferred to the primary admitting service. 50 minutes critical care time spent evaluation management stabilization of this patient. History of Present Illness Attending Physician: Js Vergara MD History of Present Illness Asked by hospitalist to evaluate this patient with hypoxemic respiratory failure and Covid pneumonitis. History is obtained from the electronic medical record as well as discussion with patient. Patient is a 35-year-old obese male without prior history. He was not vaccinated for Covid. He has been symptomatic with cough and shortness of b reath for 7 days. He also had fevers. His outpatient Covid test was + 07/23/2021. He had increasing pleuritic chest pain as well as headaches and presented to the emergency room for evaluation 07/27/2021. He was found to be hypoxemic and placed on 8 L. He was initiated on remdesivir and dexamethasone and admitted to the floor. Overnight the patient has had escalation in his oxygen requirement. He is currently on high flow oxygen at 40 L/min and 80% and participating in self proning. He states that he feels somewhat better. He is not describing his work of breathing is excessive at this current time. Allergies Allergy/AdvReac Type Severity Reaction Status Date / Time No Known Allergies Allergy Unverified 07/27/21 07:08 Home Medications Medication Instructions Recorded Confirmed Type methylprednisolone 4 mg tablets in See Rx Instructions .ROUTE 07/23/21 07/27/21 Rx a dose pack (Medrol (Michael)) .COMPLEX #21 ea albuterol sulfate 90 mcg/actuation 2 inh INHALATION Q4H PRN #6.7 g 07/24/21 07/27/21 Rx aerosol inhaler allopurinol 300 mg tablet 300 mg PO DAILY 07/27/21 07/27/21 History escitalopram oxalate 10 mg tablet 10 mg PO DAILY 07/27/21 07/27/21 History lisinopril 10 mg tablet 10 mg PO DAILY 07/27/21 07/27/21 History meloxicam 15 mg tablet 15 mg PO DAILY 07/27/21 07/27/21 History omeprazole 20 mg capsule,delayed 230 mg PO DAILY 07/27/21 07/27/21 History release Patient History Medical History Depression GERD (gastroesophageal reflux disease) Hypertension Surgical History S/P cholecystectomy Social History Smoking Status: Never smoker Hx Alcohol Use: No Hx Substance Use: No Preferred Language: Maltese Communication Ability: Effective [employer] Required: No Beliefs That Will Affect Care: None Current Living Situation: Spouse Other Information That Helps Us Care for You: No Feels Safe at Home: Yes Safety Concerns: Feels Safe At This Time Assistive Devices: Oxygen - Continuous Review of Systems Review of Systems: All systems reviewed & are unremarkable except as noted in HPI & below Physical Exam Constitutional: WD/WN, vitals as above Neck: trachea midline, no thyromegaly Respiratory: + labored breathing Auscultation: + rales; no wheezes Cardiovascular: RRR, no murmur, no edema Gastrointestinal (Abdomen): normal bowel sounds, soft, nontender, no hepatosplenomegaly Musculoskeletal: Extremities: extremities normal to inspection Skin: no rashes, warm and dry Neurologic: Nonfocal exam Lymphatic: no cervical lymphadenopathy Results & Data Results & Data ([facility]) Vital Signs (Past 12 Hours) Vital Signs Temp Pulse Pulse Resp BP Pulse Ox 07/29/21 12:36 65 31 H 94 07/29/21 12:15 36.6 C 69 24 124/64 93 07/29/21 11:23 36.8 C 72 18 142/68 H 95 07/29/21 08:03 71 28 H 92 07/29/21 08:01 71 28 H 92 07/29/21 07:35 36.5 C 71 74 18 142/69 H 92 07/29/21 06:10 85 L 07/29/21 02:59 36.8 C 67 17 128/68 92 07/29/21 02:51 67 Laboratory Results 07/29/21 05:40 07/29/21 05:[address] ANGIOGRAPHY OF THE CHEST, PULMONARY EMBOLUS PROTOCOL CLINICAL HISTORY: Shortness of breath. Covid. Evaluate for pulmonary embolus. COMPARISON STUDY: Chest radiograph July 23, 2021 and July 27, 2021. TECHNIQUE: Following IV administration of 120 mL of Optiray, helical axial images of the chest were obtained utilizing the pulmonary embolus protocol. Maximal intensity projections and sagittal and coronal reformats were viewed on an independent 3D workstation. IV contrast was administered without complication. Automated exposure control was utilized for the study. A dose lowering technique was utilized adhering to the principles of ALARA. CT DOSE: 908.11 mGy.cm FINDINGS: No pulmonary emboli are identified although the segmental and subsegmental pulmonary arteries are suboptimally assessed on this exam. There is no thoracic aortic dissection. No pericardial effusion is present. Size of the heart is at the upper limits of normal. There are prominent mediastinal and bilateral hilar lymph nodes. No pneumothorax or pleural effusion is noted. E xtensive multifocal groundglass opacities with developing consolidation within the lungs are noted. There is hepatic steatosis. IMPRESSION: 1. No pulmonary emboli identified although segmental and subsegmental pulmonary arteries suboptimally assessed due to respiratory motion. 2. Extensive multifocal groundglass opacities with developing consolidation within the lungs consistent with viral pneumonia. 3. Hepatic steatosis. PG Care Time/CCT Total # of Minutes Spent Total Time Spent with Patient: Total time spent is greater than 50% in coordination of care (as documented) at patient's floor/unit and/or counseling patient: Coding Level of Care Code Critical Care 1st 30-74 mins Diagnoses COVID U07.1 Acute hypoxemic respiratory failure J96.01 Time Spent (min) 50
[2021-07-29] MEDS: SODIUM CHLORIDE 0.9% 10ML FLUSH IV SCH (13:54)
--- NOTE | 2021-07-29 15:26 | Hospitalist Progress Note ---
Date of Service July 29, 2021 Assessment & Plan (1) COVID: Plan: Multifocal COVID pneumonia Hypoxia COVID Screen:+ on 07/23/21 CTA:Extensive multifocal groundglass opacities with developing consolidation within the lungs consistent with viral pneumonia. No PE. Procalcitonin:0.05 Troponin negative CRP:8.66 Ferritin: 1437 D-Dimer:1130 Blood Cultures No growth to date Continue Remdesivir, Dexamethasone Day #3 Given Tocilizumab today (07/29/21) Isolation precautions--Airborne/Contact Encourage frequent Proning Lasix, Albuterol PRN Continue Supplemental Oxygen as needed DVT prophylaxis: Lovenox Monitor LFTs, renal function while on Remdesivir Pulmonary toilet Appreciate pulmonology input Continue BiPAP as needed Low threshold to transfer to ICU Updated patient's family over the phone Hyponatremia Hypokalemia Hypochloremia Secondary to poor oral intake, GI losses Stool studies negative Replace electrolytes as needed Monitor Received IV fluids GERD Continue PPI Depression Continue home medication Gout Continue allopurinol Hypertension Continue lisinopril DVT Px: Lovenox SQ CODE STATUS Full code Admission and Anticipated Discharge Date Admission Date: July 27, 2021 Subjective Patient is seen and examined at bedside Currently on BiPAP Desaturating earlier today requiring BiPAP Patient states feeling comfortable after being placed on BiPAP Diarrhea, Pleuritic chest pain resolved Persistent cough Offers no other complaints Updated patient's over the phone Review of Systems Review of Systems: All systems reviewed & are unremarkable except as noted in Subjective Physical Exam Physical Exam: Physical Exam: Vitals signs as noted above General Appearance:Morbidly Obese, no apparent distress Head: normocephalic, Atraumatic Eyes: normal inspection, EOMI Neck: supple, Trachea midline Respiratory/Chest: Decreased breath sounds, CTA Cardiovascular: S1, S2, No murmur Abdomen/GI:Soft, Non tender, Bowel sounds present Extremities/Musculoskeletal:normal inspection, no edema Neurologic/Psych:AAOX3, grossly no focal neurological deficits Skin: normal color, warm Results & Data Results & Data ([facility]) Vital Signs (Past 12 Hours) Vital Signs Temp Pulse Pulse Resp BP Pulse Ox 07/29/21 15:04 36.6 C 60 24 107/49 L 92 07/29/21 14:05 65 31 H 94 07/29/21 12:36 65 31 H 94 07/29/21 12:15 36.6 C 69 24 124/64 93 07/29/21 11:23 36.8 C 72 18 142/68 H 95 07/29/21 08:03 71 28 H 92 07/29/21 08:01 71 28 H 92 07/29/21 07:35 36.5 C 71 74 18 142/69 H 92 07/29/21 06:10 85 L Laboratory Results Short CBC 07/29/21 Range/Units 05:40 WBC 9.47 (4.8-10.8) K/uL Hgb 13.6 L (14.0-18.0) g/dL Hct 39.5 L (42-52) % Plt Count 325 (130-400) K/uL BMP 07/29/21 05:40 Sodium 134 L Potassium 3.7 Chloride 100 Carbon Dioxide 27 BUN 15 Creatinine 0.90 Glucose 126 H Calcium 8.7 Liver Function 07/29/21 Range/Units 05:40 AST 53 H (15-37) U/L ALT 61 (12-78) U/L
[2021-07-29] MEDS ORDERED: traMADol HCL 50 MG TABLET PO ONE (16:57)
[2021-07-29] MEDS ORDERED: Nursing to Pharmacy Communication SCH (17:00)
--- NOTE | 2021-07-29 17:13 | Critical Care Consultation ---
Date of Consultation July 29, 2021 Assessment & Plan (1) COVID: (2) Acute hypoxemic respiratory failure: Impression: 35-year-old male without significant prior medical history admitted with Covid pneumonitis which is progressed significantly over the last 12 hours to the point that he is now on CPAP pressure of 8 at 70% FiO2. He is participating in self proning. He received remdesivir although he is 10 days out from his symptoms so I doubt it would offer him any clinical benefit at this point time. His CRP was elevated and he does meet criteria for Tocilizumab. Recommendations: 1. Acute hypoxemic respiratory failure: Continue noninvasive mechanical ventilation. If he progresses to intubation mechanical ventilation we have a low threshold for reaching out to tertiary facilities for consideration of ECMO. 2. Covid pneumonitis: Discontinue remdesivir as he is outside the window to offer any clinical benefit. Continue dexamethasone 6 mg daily. Meets criteria for Tocilizumab. This has been initiated by pulmonary. 3. Recommend the patient continue to self proning is much as possible. If he fails and requires intubation mechanical ventilation, neuromuscular blockade and proning may be of benefit although review of his CAT scan does demonstrate that his airspace opacity is fairly dense in the posterior lung field so I am unclear how much improvement in his shunt fraction he will experience with proning. History of Present Illness Reason for Consultation: Acute hypoxic respiratory failure Attending Physician: Js Vergara MD History of Present Illness Patient is a 35-year-old male with a significant past medical history of morbid obesity BMI greater than 40, hypertension, who was recently diagnosed with Covid pneumonia approximately 2 weeks ago who has had progressive worsening shortness of breath and increasing oxygen requirements. Currently the patient is requiring noninvasive mechanical ventilation and may require intubation so I been consulted to further evaluate and manage the patient. Allergies Allergy/AdvReac Type Severity Reaction Status Date / Time No Known Allergies Allergy Unverified 07/27/21 07:08 Home Medications Medication Instructions Recorded Confirmed Type methylprednisolone 4 mg tablets in See Rx Instructions .ROUTE 07/23/21 07/27/21 Rx a dose pack (Medrol (Michael)) .COMPLEX #21 ea albuterol sulfate 90 mcg/actuation 2 inh INHALATION Q4H PRN #6.7 g 07/24/21 07/27/21 Rx aerosol inhaler allopurinol 300 mg tablet 300 mg PO DAILY 07/27/21 07/27/21 History escitalopram oxalate 10 mg tablet 10 mg PO DAILY 07/27/21 07/27/21 History lisinopril 10 mg tablet 10 mg PO DAILY 07/27/21 07/27/21 History meloxicam 15 mg tablet 15 mg PO DAILY 07/27/21 07/27/21 History omeprazole 20 mg capsule,delayed 230 mg PO DAILY 07/27/21 07/27/21 History release Patient History Medical History Depression GERD (gastroesophageal reflux disease) Hypertension Surgical History S/P cholecystectomy Social History Smoking Status: Never smoker Hx Alcohol Use: No Hx Substance Use: No Preferred Language: French Communication Ability: Effective Delivery Rn Required: No Beliefs That Will Affect Care: None Current Living Situation: Spouse Other Information That Helps Us Care for You: No Feels Safe at Home: Yes Safety Concerns: Feels Safe At This Time Assistive Devices: Oxygen - Continuous Physical Exam Physical Exam: General: Alert. nontoxic. Skin: Warm, dry, Head: Atraumatic Ears, nose, mouth and throat: airway patent, BiPAP mask in place Cardiovascular: Normal peripheral perfusion Respiratory: no respiratory distress, tachypnea Gastrointestinal: Non distended Musculoskeletal: No deformity Results & Data Results & Data ([facility]) Vital Signs (Past 12 Hours) Vital Signs Temp Pulse Pulse Resp BP Pulse Ox 07/29/21 15:24 64 07/29/21 15:04 36.6 C 60 24 107/49 L 92 07/29/21 14:05 65 31 H 94 07/29/21 12:36 65 31 H 94 07/29/21 12:15 36.6 C 69 24 124/64 93 07/29/21 11:23 36.8 C 72 18 142/68 H 95 07/29/21 08:03 71 28 H 92 07/29/21 08:01 71 28 H 92 07/29/21 07:35 36.5 C 71 74 18 142/69 H 92 07/29/21 06:10 85 L Laboratory Results 10/24/21 10/24/21 10/24/21 Range/Units 08:11 05:40 05:40 WBC (4.8-10.8) K/uL RBC (4.7-6.1) M/uL Hgb (14.0-18.0) g/dL Hct (42-52) % MCV (80-100) fL MCH (25-34) pg MCHC (32-36) g/dL RDW Std Deviation (36.4-46.3) fL RDW Coeff of Zulema (11.5-14.5) % Plt Count (130-400) K/uL MPV (7.4-10.4) fL ABG pH 7.44 (7.35-7.45) ABG pCO2 39 (35-46) mmHg ABG pO2 57 L (80-95) mmHg ABG HCO3 26 H (19-24) mmol/L ABG O2 Saturation 90.8 (90-95) % ABG Base Excess 2.0 H (-9-1.8) mEq/L Jayy Test Pos (Pos) Barometric Pressure 735.3 mm/Hg Oxygen Given 40 L Sodium 134 L (136-145) mmol/L Potassium 3.7 (3.5-5.1) mmol/L Chloride 100 (98-107) mmol/L Carbon Dioxide 27 (21-32) mmol/L Anion Gap 7.0 (3-11) BUN 15 (7-18) mg/dl Creatinine 0.90 (0.6-1.4) mg/dl Est Cr Clr Drug Dosing 142.8 ml/min Est GFR ( Amer) 126.9 ml/min Est GFR (Non-Af Amer) 109.5 ml/min BUN/Creatinine Ratio 17.1 (10-20) Glucose 126 H (70-99) mg/dl Calcium 8.7 (8.5-10.1) mg/dl Magnesium 2.8 H (1.8-2.4) mg/dl AST 53 H (15-37) U/L ALT 61 (12-78) U/L C-Reactive Protein 9.44 H (0-0.29) mg/dl 07/29/21 Range/Units 05:40 WBC 9.47 (4.8-10.8) K/uL RBC 4.73 (4.7-6.1) M/uL Hgb 13.6 L (14.0-18.0) g/dL Hct 39.5 L (42-52) % MCV 83.5 (80-100) fL MCH 28.8 (25-34) pg MCHC 34.4 (32-36) g/dL RDW Std Deviation 41.4 (36.4-46.3) fL RDW Coeff of Zulema 13.6 (11.5-14.5) % Plt Count 325 (130-400) K/uL MPV 9.5 (7.4-10.4) fL ABG pH (7.35-7.45) ABG pCO2 (35-46) mmHg ABG pO2 (80-95) mmHg ABG HCO3 (19-24) mmol/L ABG O2 Saturation (90-95) % ABG Base Excess (-9-1.8) mEq/L Jayy Test (Pos) Barometric Pressure mm/Hg Oxygen Given Sodium (136-145) mmol/L Potassium (3.5-5.1) mmol/L Chloride (98-107) mmol/L Carbon Dioxide (21-32) mmol/L Anion Gap (3-11) BUN (7-18) mg/dl Creatinine (0.6-1.4) mg/dl Est Cr Clr Drug Dosing ml/min Est GFR ( Amer) ml/min Est GFR (Non-Af Amer) ml/min BUN/Creatinine Ratio (10-20) Glucose (70-99) mg/dl Calcium (8.5-10.1) mg/dl Magnesium (1.8-2.4) mg/dl AST (15-37) U/L ALT (12-78) U/L C-Reactive Protein (0-0.29) mg/dl Coding Level of Care Code 79172 Inpt Consult Level 4 Diagnoses COVID U07.1 Acute hypoxemic respiratory failure J96.01
[2021-07-29] MEDS ORDERED: MoRPHine SULFATE 2 MG/ML CARP IV STA (19:16)
[2021-07-29] MEDS: ADVANCED PROBIOTIC 1250 MG CAPSULE PO SCH (19:32)
[2021-07-29] MEDS ORDERED: FAMOTIDINE 20 MG in SYRINGE 3 ML IV ONE (21:45)
[2021-07-29] MEDS: traMADol HCL 50 MG TABLET PO PRN (22:40)
[2021-07-29] MEDS ORDERED: MELATONIN 3 MG TAB PO ONE (22:53)
[2021-07-29 23:05] LABS: Partial Thromboplastin Time 27.4 Seconds (21.0-31.0)
[2021-07-30] MEDS ORDERED: CHLORASEPTIC 1.4% SOLN 180 ML BTL MT PRN (05:44)
[2021-07-30 06:23] LABS: Hematocrit (blood only) 39.3 % (42-52); Hemoglobin 13.6 g/dL (14.0-18.0); Mean Corpuscular Hemoglobin 29.1 pg (25-34); Mean Corpuscular Hgb Conc 34.6 g/dL (32-36); Mean Platelet Volume 9.9 fL (7.4-10.4); Platelet Count 220 K/uL (130-400); RDW Coefficient of Variation 13.7 % (11.5-14.5); RDW Standard Deviation 41.7 fL (36.4-46.3); Red Blood Count 4.68 M/uL (4.7-6.1); White Blood Count 9.62 K/uL (4.8-10.8)
[2021-07-30 07:00] LABS: BUN Creatinine Ratio 22.8 (10-20); Calcium 8.6 mg/dl (8.5-10.1); Creatinine Clr Calc Pharmacy 144.6 ml/min; Est GFR (African American) 128.1 ml/min; Est GFR (Non-African American) 110.5 ml/min; Magnesium 2.7 mg/dl (1.8-2.4); Phosphorus 4.1 mg/dl (2.5-4.9); Potassium 3.8 mmol/L (3.5-5.1)
--- NOTE | 2021-07-30 07:09 | Ultrasound Report ---
ULTRASOUND LEFT LOWER EXTREMITY VENOUS CLINICAL HISTORY: Left leg pain. COMPARISON STUDY: No priors. TECHNIQUE: Real-time, grayscale, and color Doppler sonography of the deep veins of the left lower ext remity was performed from the inguinal crease to the calf. Compression and augmentation were utilized . FINDINGS: There is occlusive deep venous thrombosis in the left calf within the posterior tibial and peroneal veins. No above knee deep venous thrombosis is identified. The common femoral, superficial f emoral, and popliteal veins are patent and normally compressible. The greater saphenous vein and the profunda femoris vein at the junction with the common femoral vein are clear. IMPRESSION: Occlusive deep venous thrombosis in the left calf as above. ACT 112: Negative or not required by law. Electronically signed by: Syed Waite M.D. 07/30/2021 7:08 AM
[2021-07-30] MEDS: BENZONATATE 100 MG CAPSULE PO SCH ×3 (08:09→20:32)
[2021-07-30] MEDS: PANTOprazole 40 MG TAB PO SCH (08:10)
[2021-07-30] MEDS: allopurinoL 300 MG TAB PO SCH (08:10)
[2021-07-30] MEDS: lisinopril 10 MG TAB PO SCH (08:10)
[2021-07-30] MEDS: ESCITALOPRAM OXALATE 10 MG TAB PO SCH (08:10)
[2021-07-30] MEDS: ADVANCED PROBIOTIC 1250 MG CAPSULE PO SCH ×3 (08:11→16:31)
[2021-07-30] MEDS: ENOXAPARIN INJ 40 MG/0.4 ML SYR SQ SCH (08:12)
[2021-07-30] MEDS: dexAMETHasone 6 MG in SYRINGE 0 ML IV SCH (08:34)
[2021-07-30] MEDS: traMADol HCL 50 MG TABLET PO PRN (09:41)
[2021-07-30] MEDS: SODIUM CHLORIDE 0.9% 10ML FLUSH IV SCH (11:34)
[2021-07-30] MEDS ORDERED: ENOXAPARIN 80 MG/0.8 ML SYR SQ ONE (11:45)
--- NOTE | 2021-07-30 14:00 | Hospitalist Progress Note ---
Date of Service July 30, 2021 Assessment & Plan (1) COVID: Plan: Multifocal COVID pneumonia COVID Screen:+ on 07/23/21 CTA:Extensive multifocal groundglass opacities with developing consolidation within the lungs consistent with viral pneumonia. No PE. Inflammatory markers are elevated Blood Cultures No growth to date Remdesivir was initiated later on discontinued as advised by the womens health nurse practitioner Given Tocilizumab today (07/29/21) Encourage frequent Proning Lasix, Albuterol PRN Continue BiPAP as needed Low threshold to transfer to ICU Updated patient's family over the phone DVT of the left calf Started on Lovenox 120 mg twice daily Electrolyte imbalance Hyponatremia Hypokalemia Hypochloremia Secondary to poor oral intake, GI losses Replace electrolytes as needed Electrolytes have been normalized GERD Continue PPI Depression Continue home medication Gout Continue allopurinol Hypertension Continue lisinopril DVT Px: Lovenox SQ CODE STATUS Full code Admission and Anticipated Discharge Date Admission Date: July 27, 2021 Subjective 07/30/2021 The patient was seen and examined in telemetry unit and in Covid room He has been feeling a little better still requiring high flow oxygen to maintain saturation He was noted to have DVT of the left leg and full dose Lovenox was initiated Trying to be in prone position as long as he can Review of Systems Review of Systems: All systems reviewed and are unremarkable except as noted below Respiratory: Mild to moderate shortness of breath at rest Physical Exam Physical Exam: Lying in bed in prone position with moderate shortness of breath at rest Constitutional: well developed, well nourished, + ill appearing and + morbidly obese Eyes: PERRL, conjunctivae normal, anicteric sclerae ENMT: external ear and nose normal, oropharynx normal Neck: trachea midline, no thyromegaly Respiratory: + respiratory distress Auscultation: + diminished lung sounds and + crackles (At the bases) Cardiovascular: Rate/Rhythm: regular rate and regular rhythm; not tachycardic Heart Sounds: normal S1 and normal S2; no murmur Extremities: + edema (Trace edema bilaterally) Gastrointestinal (Abdomen): Inspection/Auscultation: + abdomen distended and normal bowel sounds Percussion/Palpation: abdomen soft; abdomen nontender Musculoskeletal: No acute arthritis in any joint Neurologic: Alert, awake and oriented x3. Generally weak but no focal sensory and motor deficit appreciated Results & Data Results & Data ([facility]) Vital Signs (Past 12 Hours) Vital Signs Temp Pulse Pulse Resp BP BP Pulse Ox 07/30/21 11:56 36.7 C 70 20 121/67 96 07/30/21 10:51 66 26 H 89 L 07/30/21 08:37 78 24 89 L 07/30/21 07:49 36.7 C 69 22 130/77 94 07/30/21 02:56 36.3 C L 62 21 106/62 94 07/30/21 02:40 65 28 H 93 Laboratory Results Short CBC 07/30/21 Range/Units 05:49 WBC 9.62 (4.8-10.8) K/uL Hgb 13.6 L (14.0-18.0) g/dL Hct 39.3 L (42-52) % Plt Count 220 (130-400) K/uL BMP 07/30/21 05:49 Sodium 135 L Potassium 3.8 Chloride 102 Carbon Dioxide 27 BUN 20 H Creatinine 0.88 Glucose 94 Calcium 8.6 Cardiac Enzymes 07/29/21 Range/Units 22:42 Troponin I < 0.015 (0-0.045) ng/ml Liver Function 07/30/21 Range/Units 05:49 AST 49 H (15-37) U/L ALT 65 (12-78) U/L Medications Administered Current Inpatient Medications Acetaminophen (Acetaminophen 325 Mg Tab) 650 mg PO Q4H PRN PRN Reason: pain/fever Stop: 08/26/21 10:59 Last Admin: 07/29/21 08:13 Dose: 650 mg Documented by: Allopurinol (Allopurinol 300 Mg Tab) 300 mg PO DAILY JOSS Stop: 08/26/21 10:59 Last Admin: 07/30/21 08:10 Dose: 300 mg Documented by: Benzonatate (Benzonatate 100 Mg Capsule) 100 mg PO TID JOSS Stop: 08/26/21 13:59 Last Admin: 07/30/21 12:52 Dose: 100 mg Documented by: Enoxaparin Sodium (Enoxaparin Inj 120 Mg/0.8 Ml Syr) 120 mg SQ Q12H JOSS Stop: 08/29/21 21:59 Escitalopram Oxalate (Escitalopram Oxalate 10 Mg Tab) 10 mg PO DAILY JOSS Stop: 08/26/21 10:59 Last Admin: 07/30/21 08:10 Dose: 10 mg Documented by: Guaifenesin/Dextromethorphan (Guaifenesin/Dextrom Syrup 100mg/10mg 5ml Udc) 5 ml PO Q6H PRN PRN Reason: Cough Stop: 08/26/21 13:00 Last Admin: 07/29/21 05:55 Dose: 5 ml Documented by: Dexamethasone 6 mg/ Syringe 1.5 mls @ 1 mls/min IV DAILY JOSS Stop: 08/06/21 08:59 Last Admin: 07/30/21 08:34 Dose: 1 mls/min Documented by: Lactobacillus Acidoph/Casei/Rhamnos (Advanced Probiotic 1250 Mg Capsule) 1 cap PO TIDM JOSS Stop: 08/28/21 16:59 Last Admin: 07/30/21 12:52 Dose: 1 cap Documented by: Levalbuterol HCl (Levalbuterol Hcl 0.63 Mg/3 Ml Neb) 0.63 mg NEB QIDR PRN PRN Reason: Wheezing Stop: 08/26/21 10:59 Last Admin: 07/29/21 08:01 Dose: 0.63 mg Documented by: Lisinopril (Lisinopril 10 Mg Tab) 10 mg PO DAILY JOSS Stop: 08/26/21 10:59 Last Admin: 07/30/21 08:10 Dose: 10 mg Documented by: Loperamide HCl (Loperamide Hcl 2 Mg Cap) 2 mg PO Q6H PRN PRN Reason: Diarrhea Stop: 08/27/21 09:17 Last Admin: 07/28/21 10:41 Dose: 2 mg Documented by: Melatonin (Melatonin 3 Mg Tab) 3 mg PO HS PRN PRN Reason: Sleep Stop: 08/28/21 22:47 Ondansetron HCl (Ondansetron Inj 2 Mg/Ml 2 Ml Vial) 4 mg IV Q6H PRN PRN Reason: Nausea Stop: 08/26/21 10:59 Last Admin: 07/28/21 20:55 Dose: 4 mg Documented by: Pantoprazole Sodium (Pantoprazole 40 Mg Tab) 40 mg PO DAILY JOSS Stop: 08/26/21 08:59 Last Admin: 07/30/21 08:10 Dose: 40 mg Documented by: Phenol (Chloraseptic 1.4% Soln 180 Ml Btl) 1 sprays MT Q2H PRN PRN Reason: throat discomfort Stop: 08/29/21 05:43 Polyethylene Glycol (Polyethylene (Miralax) 17 Gm Pack) 17 gm PO DAILY PRN PRN Reason: Constipation Stop: 08/26/21 10:59 Tramadol HCl (Tramadol Hcl 50 Mg Tablet) 25 - 50 mg PO Q4H PRN PRN Reason: Pain Stop: 08/28/21 21:39 Last Admin: 07/30/21 09:41 Dose: 50 mg Documented by:
--- NOTE | 2021-07-30 14:02 | Pulmonology Progress Note ---
Date of Service July 30, 2021 Assessment & Plan (1) COVID: (2) Acute hypoxemic respiratory failure: Plan: Impression: 35-year-old male without significant prior medical history admitted with Covid pneumonitis. Recommendations: 1. Acute hypoxemic respiratory failure: Secondary to COVID-19 viral pneumonia. He has an ARDS-like picture. Currently on Decadron. Received tocilizumab 07/29/2021. Continue self proning. Continue to use high flow and BiPAP interc hangeably for hypoxia and shortness of breath. Maintain saturations of 92 to 94%. He is a high risk for sudden decompensation and requiring mechanical ventilation. He appears fairly euvolemic at this time. Continue to maintain him on the veneer drier side given his ARDS picture. CT chest reviewed in detail which demonstrates multifocal groundglass opacities consistent with viral pneumonia. Lower extremity ultrasound revealed occlusive DVT in the left calf. Continue anticoagulation per hospitalist service. Patient discussed with nurse at bedside. Admission and Anticipated Discharge Date Admission Date: July 27, 2021 Subjective Patient seen and examined. He is currently proning. Denies any significant shortness of breath at present. He does note shortness of breath with minimal exertion such as turning in bed or sitting up. Denies chest pain. Nurse notes that he has been anxious today. Review of Systems Review of Systems: All systems reviewed & are unremarkable except as noted in HPI & below Physical Exam Constitutional: WD/WN, vitals as above Neck: trachea midline, no thyromegaly Respiratory: Auscultation: + rales; no wheezes Cardiovascular: RRR, no murmur, no edema Gastrointestinal (Abdomen): normal bowel sounds, soft, nontender, no hepatosplenomegaly Musculoskeletal: Extremities: extremities normal to inspection Skin: no rashes, warm and dry Neurologic: Nonfocal exam Lymphatic: no cervical lymphadenopathy Results & Data Results & Data ([facility]) Vital Signs (Past 12 Hours) Vital Signs Temp Pulse Pulse Resp BP BP Pulse Ox 07/30/21 11:56 98.1 F 70 20 121/67 96 07/30/21 10:51 66 26 H 89 L 07/30/21 08:37 78 24 89 L 07/30/21 07:49 98.1 F 69 22 130/77 94 07/30/21 02:56 97.3 F L 62 21 106/62 94 07/30/21 02:40 65 28 H 93 vital signs, labs and imaging personally reviewed PG Care Time/CCT Total # of Minutes Spent Total Time Spent with Patient: Total time spent is greater than 50% in coordination of care (as documented) at patient's floor/unit and/or counseling patient: Coding Level of Care Code 81719 Subseq Hosp Care Lvl 2 Diagnoses COVID U07.1 Acute hypoxemic respiratory failure J96.01
[2021-07-30] MEDS ORDERED: FUROSEMIDE 60 MG in SYRINGE 0 ML IV ONE (14:09)
[2021-07-30] MEDS ORDERED: FUROSEMIDE 40 MG/4 ML VIAL IV ONE ×2 (14:15→16:26)
[2021-07-30] MEDS ORDERED: FUROSEMIDE INJ 20 MG/2 ML VIAL IV ONE (16:33)
[2021-07-30] MEDS: ENOXAPARIN INJ 120 MG/0.8 ML SYR SQ SCH (20:32)
[2021-07-31] MEDS: traMADol HCL 50 MG TABLET PO PRN ×3 (00:56→20:06)
[2021-07-31] MEDS: MELATONIN 3 MG TAB PO PRN ×2 (01:35→20:06)
--- NOTE | 2021-07-31 04:51 | Electrocardiogram Report ---
Test Reason : Blood Pressure : / mmHG Vent. Rate : 067 BPM Atrial Rate : 067 BPM P-R Int : 144 ms QRS Dur : 088 ms QT Int : 422 ms P-R-T Axes : 053 064 031 degrees QTc Int : 445 ms Normal sinus rhythm with sinus arrhythmia Normal ECG When compared with ECG of 27-JUL-2021 12:54, No significant change was found Confirmed by Barney Carver ([id number]) on 07/31/2021 4:51:28 AM Referred By: REFERRED SELF Confirmed By:Barney Carver
[2021-07-31 07:04] LABS: BUN Creatinine Ratio 28.3 (10-20); Calcium 8.8 mg/dl (8.5-10.1); Creatinine Clr Calc Pharmacy 152.8 ml/min; Est GFR (African American) 131.2 ml/min; Est GFR (Non-African American) 113.2 ml/min; Magnesium 2.7 mg/dl (1.8-2.4); Potassium 3.5 mmol/L (3.5-5.1)
[2021-07-31] MEDS: ADVANCED PROBIOTIC 1250 MG CAPSULE PO SCH ×3 (08:42→18:18)
[2021-07-31] MEDS: lisinopril 10 MG TAB PO SCH (08:43)
[2021-07-31] MEDS: allopurinoL 300 MG TAB PO SCH (08:43)
[2021-07-31] MEDS: dexAMETHasone 6 MG in SYRINGE 0 ML IV SCH (08:43)
[2021-07-31] MEDS: ENOXAPARIN INJ 120 MG/0.8 ML SYR SQ SCH ×2 (08:44→20:02)
[2021-07-31] MEDS: BENZONATATE 100 MG CAPSULE PO SCH ×3 (08:44→20:06)
[2021-07-31] MEDS: PANTOprazole 40 MG TAB PO SCH (11:30)
[2021-07-31] MEDS: ESCITALOPRAM OXALATE 10 MG TAB PO SCH (11:31)
--- NOTE | 2021-07-31 15:44 | Pulmonology Progress Note ---
Date of Service July 31, 2021 Assessment & Plan (1) COVID: (2) Acute hypoxemic respiratory failure: (3) Morbid obesity: Plan: Impression: 35-year-old male with a past medical history of morbid obesity admitted with Covid pneumonitis and acute hypoxemic respiratory failure. Recommendations: 1. Acute hypoxemic respiratory failure: Secondary to COVID-19 viral pneumonia. He has an ARDS-like picture. Currently on Decadron. Received tocilizumab 07/29/2021. Continue self proning. Continue to use high flow and BiPAP interchangeably for hypoxia and shortness of breath. Maintain saturations of 92 to 94%. Oxygenation improved today. I weaned him to 35 L of high flow nasal cannula at 35% FiO2. CT chest reviewed in detail which demonstrates multifocal groundglass opacities consistent with viral pneumonia. Lower extremity ultrasound revealed occlusive DVT in the left calf. Continue anticoagulation per hospitalist service. Patient discussed with nurse at bedside. Pulmonary will sign off. Thank you for the consult. Please call with questions. Admission and Anticipated Discharge Date Admission Date: July 27, 2021 Subjective Patient seen and examined. Shortness of breath is improved compared to yesterday. No chest pain. He is snacking. Appetite has been poor. Review of Systems Review of Systems: All systems reviewed & are unremarkable except as noted in HPI & below Physical Exam Constitutional: WD/WN, vitals as above Neck: trachea midline, no thyromegaly Respiratory: Auscultation: lungs clear to auscultation bilaterally; no wheezes Cardiovascular: RRR, no murmur, no edema Gastrointestinal (Abdomen): normal bowel sounds, soft, nontender, no hepatosplenomegaly Musculoskeletal: Extremities: extremities normal to inspection Skin: no rashes, warm and dry Lymphatic: no cervical lymphadenopathy Results & Data Results & Data ([facility]) Vital Signs (Past 12 Hours) Vital Signs Temp Pulse Resp BP Pulse Ox 07/31/21 14:21 54 L 19 96 07/31/21 11:29 18 93 07/31/21 11:27 98.2 F 58 L 26 H 122/85 93 07/31/21 07:35 80 18 93 07/31/21 07:25 98.2 F 64 22 118/80 95 07/31/21 05:39 98.4 F 66 18 131/72 98 PG Care Time/CCT Total # of Minutes Spent Total Time Spent with Patient: Total time spent is greater than 50% in coordination of care (as documented) at patient's floor/unit and/or counseling patient: Coding Level of Care Code 33106 Subseq Hosp Care Lvl 2 Diagnoses COVID U07.1 Acute hypoxemic respiratory failure J96.01 Morbid obesity E66.01
[2021-07-31] MEDS ORDERED: POTASSIUM CHLORIDE CRTAB 20 MEQ TABCR PO STA (16:55)
--- NOTE | 2021-07-31 16:55 | Hospitalist Progress Note ---
Date of Service July 31, 2021 Assessment & Plan (1) COVID: Plan: Multifocal COVID pneumonia COVID Screen:+ on 07/23/21 CTA:Extensive multifocal groundglass opacities with developing consolidation within the lungs consistent with viral pneumonia. No PE. Inflammatory markers are elevated Blood Cultures No growth to date Remdesivir was initiated later on discontinued as advised by the power system engineer Given Tocilizumab today (07/29/21) Encourage frequent Proning Lasix, Albuterol PRN Continue BiPAP as needed Much better clinically today and has been requiring 35% with 0.35 FiO2 oxygen to maintain saturation We will give another dose of Lasix today DVT of the left calf Started on Lovenox 120 mg twice daily Electrolyte imbalance Hyponatremia Hypokalemia Hypochloremia Secondary to poor oral intake, GI losses Replace electrolytes as needed Electrolytes have been normalized-we will monitor GERD Continue PPI Depression Continue home medication Gout Continue allopurinol Hypertension Continue lisinopril DVT Px: Lovenox SQ CODE STATUS Full code Admission and Anticipated Discharge Date Admission Date: July 27, 2021 Subjective 07/30/2021 The patient was seen and examined in telemetry unit and in Covid room He has been feeling a little better still requiring high flow oxygen to maintain saturation He was noted to have DVT of the left leg and full dose Lovenox was initiated Trying to be in prone position as long as he can 07/31/2021 The patient was seen and examined in telemetry unit and in the Covid room He has been feeling much better today Oxygen requirements has gone down to 35 L with 0.35% FiO2 Review of Systems Review of Systems: All systems reviewed and are unremarkable except as noted below Respiratory: Mild to moderate shortness of breath at rest Physical Exam Physical Exam: Lying in bed in prone position with moderate shortness of breath at rest Constitutional: well developed, well nourished, + ill appearing and + morbidly obese Eyes: PERRL, conjunctivae normal, anicteric sclerae ENMT: external ear and nose normal, oropharynx normal Neck: trachea midline, no thyromegaly Respiratory: + respiratory distress Auscultation: + diminished lung sounds and + crackles (At the bases) Cardiovascular: Rate/Rhythm: regular rate and regular rhythm; not tachycardic Heart Sounds: normal S1 and normal S2; no murmur Extremities: + edema (Trace edema bilaterally) Gastrointestinal (Abdomen): Inspection/Auscultation: + abdomen distended and normal bowel sounds Percussion/Palpation: abdomen soft; abdomen nontender Musculoskeletal: No acute arthritis in any joint Neurologic: Alert, awake and oriented x3 Results & Data Results & Data ([facility]) Vital Signs (Past 12 Hours) Vital Signs Temp Pulse Resp BP Pulse Ox 07/31/21 15:50 37.1 C 60 21 119/76 88 L 07/31/21 14:21 54 L 19 96 07/31/21 11:29 18 93 07/31/21 11:27 36.8 C 58 L 26 H 122/85 93 07/31/21 07:35 80 18 93 07/31/21 07:25 36.8 C 64 22 118/80 95 07/31/21 05:39 36.9 C 66 18 131/72 98 Laboratory Results [facility] 07/31/21 05:50 Sodium 134 L Potassium 3.5 Chloride 99 Carbon Dioxide 29 BUN 23 H Creatinine 0.83 Glucose 95 Calcium 8.8 Liver Function 07/31/21 Range/Units 05:50 AST 46 H (15-37) U/L ALT 64 (12-78) U/L Medications Administered Current Inpatient Medications Acetaminophen (Acetaminophen 325 Mg Tab) 650 mg PO Q4H PRN PRN Reason: pain/fever Stop: 08/26/21 10:59 Last Admin: 07/29/21 08:13 Dose: 650 mg Documented by: Allopurinol (Allopurinol 300 Mg Tab) 300 mg PO DAILY [facility] Stop: 08/26/21 10:59 Last Admin: 07/31/21 08:43 Dose: 300 mg Documented by: Benzonatate (Benzonatate 100 Mg Capsule) 100 mg PO TID [facility] Stop: 08/26/21 13:59 Last Admin: 07/31/21 14:02 Dose: 100 mg Documented by: Enoxaparin Sodium (Enoxaparin Inj 120 Mg/0.8 Ml Syr) 120 mg SQ Q12H [facility] Stop: 08/29/21 21:59 Last Admin: 07/31/21 08:44 Dose: 120 mg Documented by: Escitalopram Oxalate (Escitalopram Oxalate 10 Mg Tab) 10 mg PO DAILY [facility] Stop: 08/26/21 10:59 Last Admin: 07/31/21 11:31 Dose: 10 mg Documented by: Guaifenesin/Dextromethorphan (Guaifenesin/Dextrom Syrup 100mg/10mg 5ml Udc) 5 ml PO Q6H PRN PRN Reason: Cough Stop: 08/26/21 13:00 Last Admin: 07/29/21 05:55 Dose: 5 ml Documented by: Dexamethasone 6 mg/ Syringe 1.5 mls @ 1 mls/min IV DAILY [facility] Stop: 08/06/21 08:59 Last Admin: 07/31/21 08:43 Dose: 1 mls/min Documented by: Lactobacillus Acidoph/Casei/Rhamnos (Advanced Probiotic 1250 Mg Capsule) 1 cap PO TIDM JOSS Stop: 08/28/21 16:59 Last Admin: 07/31/21 11:32 Dose: 1 cap Documented by: Levalbuterol HCl (Levalbuterol Hcl 0.63 Mg/3 Ml Neb) 0.63 mg NEB QIDR PRN PRN Reason: Wheezing Stop: 08/26/21 10:59 Last Admin: 07/29/21 08:01 Dose: 0.63 mg Documented by: Lisinopril (Lisinopril 10 Mg Tab) 10 mg PO DAILY [facility] Stop: 08/26/21 10:59 Last Admin: 07/31/21 08:43 Dose: 10 mg Documented by: Loperamide HCl (Loperamide Hcl 2 Mg Cap) 2 mg PO Q6H PRN PRN Reason: Diarrhea Stop: 08/27/21 09:17 Last Admin: 07/28/21 10:41 Dose: 2 mg Documented by: Melatonin (Melatonin 3 Mg Tab) 3 mg PO HS PRN PRN Reason: Sleep Stop: 08/28/21 22:47 Last Admin: 07/31/21 01:35 Dose: 3 mg Documented by: Ondansetron HCl (Ondansetron Inj 2 Mg/Ml 2 Ml Vial) 4 mg IV Q6H PRN PRN Reason: Nausea Stop: 08/26/21 10:59 Last Admin: 07/28/21 20:55 Dose: 4 mg Documented by: Pantoprazole Sodium (Pantoprazole 40 Mg Tab) 40 mg PO DAILY [facility] Stop: 08/26/21 08:59 Last Admin: 07/31/21 11:30 Dose: 40 mg Documented by: Phenol (Chloraseptic 1.4% Soln 180 Ml Btl) 1 sprays MT Q2H PRN PRN Reason: throat discomfort Stop: 08/29/21 05:43 Polyethylene Glycol (Polyethylene (Miralax) 17 Gm Pack) 17 gm PO DAILY PRN PRN Reason: Constipation Stop: 08/26/21 10:59 Tramadol HCl (Tramadol Hcl 50 Mg Tablet) 25 - 50 mg PO Q4H PRN PRN Reason: Pain Stop: 08/28/21 21:39 Last Admin: 07/31/21 10:08 Dose: 50 mg Documented by:
[2021-07-31] MEDS ORDERED: FUROSEMIDE 40 MG/4 ML VIAL IV ONE (17:00)
[2021-08-01] MEDS: guaiFENesin/DEXTROM SYRUP 100MG/10MG 5ML UDC PO PRN ×2 (03:10→21:07)
[2021-08-01 06:57] LABS: Creatinine Clr Calc Pharmacy 134.7 ml/min; Est GFR (Non-African American) 105.2 ml/min; Potassium 3.8 mmol/L (3.5-5.1)
[2021-08-01 06:58] LABS: Phosphorus 4.4 mg/dl (2.5-4.9)
[2021-08-01] MEDS: dexAMETHasone 6 MG in SYRINGE 0 ML IV SCH (08:24)
[2021-08-01] MEDS: ADVANCED PROBIOTIC 1250 MG CAPSULE PO SCH ×3 (08:27→18:19)
[2021-08-01] MEDS: ESCITALOPRAM OXALATE 10 MG TAB PO SCH (08:27)
[2021-08-01] MEDS: PANTOprazole 40 MG TAB PO SCH (08:28)
[2021-08-01] MEDS: lisinopril 10 MG TAB PO SCH (08:28)
[2021-08-01] MEDS: allopurinoL 300 MG TAB PO SCH (08:29)
[2021-08-01] MEDS: BENZONATATE 100 MG CAPSULE PO SCH ×3 (08:35→21:01)
[2021-08-01] MEDS: ENOXAPARIN INJ 120 MG/0.8 ML SYR SQ SCH ×2 (09:02→21:00)
[2021-08-01] MEDS: traMADol HCL 50 MG TABLET PO PRN ×2 (12:48→20:59)
[2021-08-01] MEDS ORDERED: FUROSEMIDE 40 MG/4 ML VIAL IV ONE (13:13)
--- NOTE | 2021-08-01 14:11 | Hospitalist Progress Note ---
Date of Service August 01, 2021 Assessment & Plan (1) COVID: Plan: Multifocal COVID pneumonia COVID Screen:+ on 07/23/21 CTA:Extensive multifocal groundglass opacities with developing consolidation within the lungs consistent with viral pneumonia. No PE. Inflammatory markers are elevated Blood Cultures No growth to date Remdesivir was initiated later on discontinued as advised by the ditching machine engineer Given Tocilizumab today (07/29/21) Encourage frequent Proning Lasix, Albuterol PRN Continue BiPAP as needed Much better clinically today and has been requiring 35% with 0.35 FiO2 oxygen to maintain saturation Much improved and requiring 6 L of oxygen to maintain saturation We will give another dose of Lasix today DVT of the left calf Started on Lovenox 120 mg twice daily We will put her on Eliquis on discharge if recommended Electrolyte imbalance Hyponatremia Hypokalemia Hypochloremia Secondary to poor oral intake, GI losses Replace electrolytes as needed Electrolytes have been normalized-we will monitor GERD Continue PPI Depression Continue home medication Gout Continue allopurinol Hypertension Continue lisinopril DVT Px: Lovenox SQ CODE STATUS Full code Admission and Anticipated Discharge Date Admission Date: July 27, 2021 Subjective 07/30/2021 The patient was seen and examined in telemetry unit and in Covid room He has been feeling a little better still requiring high flow oxygen to maintain saturation He was noted to have DVT of the left leg and full dose Lovenox was initiated Trying to be in prone position as long as he can 07/31/2021 The patient was seen and examined in telemetry unit and in the Covid room He has been feeling much better today Oxygen requirements has gone down to 35 L with 0.35% FiO2 08/01/2021 The patient was seen and examined in telemetry unit and in the Covid room He has been feeling much better today and is out of bed on a chair Requiring 6 L of oxygen to maintain saturation Review of Systems Review of Systems: All systems reviewed and are unremarkable except as noted below Respiratory: Mild to moderate shortness of breath at rest Physical Exam Physical Exam: Sitting on a chair without any acute distress Constitutional: well developed, well nourished, + ill appearing and + morbidly obese Eyes: PERRL, conjunctivae normal, anicteric sclerae ENMT: external ear and nose normal, oropharynx normal Neck: trachea midline, no thyromegaly Respiratory: + respiratory distress Auscultation: + diminished lung sounds and + crackles (At the bases) Cardiovascular: Rate/Rhythm: regular rate and regular rhythm; not tachycardic Heart Sounds: normal S1 and normal S2; no murmur Extremities: + edema (Trace edema bilaterally) Gastrointestinal (Abdomen): Inspection/Auscultation: + abdomen distended and normal bowel sounds Percussion/Palpation: abdomen soft; abdomen nontender Musculoskeletal: No acute arthritis in any joint Neurologic: Alert, awake and oriented x3. No focal sensory and or motor deficit appreciated Lymphatic: no cervical or axillary lymphadenopathy Results & Data Results & Data ([facility]) Vital Signs (Past 12 Hours) Vital Signs Temp Pulse Pulse Resp BP Pulse Ox 08/01/21 12:05 36.7 C 60 20 112/54 L 92 08/01/21 09:22 55 L 08/01/21 07:52 36.9 C 55 L 14 126/67 94 08/01/21 03:41 36.9 C 56 L 22 96/54 L 95 Laboratory Results [facility] 08/01/21 06:00 Sodium 134 L Potassium 3.8 Chloride 98 Carbon Dioxide 27 BUN 24 H Creatinine 0.93 Glucose 91 Calcium 9.0 Liver Function 08/01/21 Range/Units 06:00 AST 50 H (15-37) U/L ALT 81 H (12-78) U/L Medications Administered Current Inpatient Medications Acetaminophen (Acetaminophen 325 Mg Tab) 650 mg PO Q4H PRN PRN Reason: pain/fever Stop: 08/26/21 10:59 Last Admin: 07/29/21 08:13 Dose: 650 mg Documented by: Allopurinol (Allopurinol 300 Mg Tab) 300 mg PO DAILY [facility] Stop: 08/26/21 10:59 Last Admin: 08/01/21 08:29 Dose: 300 mg Documented by: Benzonatate (Benzonatate 100 Mg Capsule) 100 mg PO TID [facility] Stop: 08/26/21 13:59 Last Admin: 08/01/21 13:43 Dose: 100 mg Documented by: Enoxaparin Sodium (Enoxaparin Inj 120 Mg/0.8 Ml Syr) 120 mg SQ Q12H JOSS Stop: 08/29/21 21:59 Last Admin: 08/01/21 09:02 Dose: 120 mg Documented by: Escitalopram Oxalate (Escitalopram Oxalate 10 Mg Tab) 10 mg PO DAILY [facility] Stop: 08/26/21 10:59 Last Admin: 08/01/21 08:27 Dose: 10 mg Documented by: Guaifenesin/Dextromethorphan (Guaifenesin/Dextrom Syrup 100mg/10mg 5ml Udc) 5 ml PO Q6H PRN PRN Reason: Cough Stop: 08/26/21 13:00 Last Admin: 08/01/21 03:10 Dose: 5 ml Documented by: Dexamethasone 6 mg/ Syringe 1.5 mls @ 1 mls/min IV DAILY [facility] Stop: 08/06/21 08:59 Last Admin: 08/01/21 08:24 Dose: 1 mls/min Documented by: Lactobacillus Acidoph/Casei/Rhamnos (Advanced Probiotic 1250 Mg Capsule) 1 cap PO TIDM [facility]OSS Stop: 08/28/21 16:59 Last Admin: 08/01/21 12:27 Dose: 1 cap Documented by: Levalbuterol HCl (Levalbuterol Hcl 0.63 Mg/3 Ml Neb) 0.63 mg NEB QIDR PRN PRN Reason: Wheezing Stop: 08/26/21 10:59 Last Admin: 07/29/21 08:01 Dose: 0.63 mg Documented by: Lisinopril (Lisinopril 10 Mg Tab) 10 mg PO DAILY [facility] Stop: 08/26/21 10:59 Last Admin: 08/01/21 08:28 Dose: 10 mg Documented by: Loperamide HCl (Loperamide Hcl 2 Mg Cap) 2 mg PO Q6H PRN PRN Reason: Diarrhea Stop: 08/27/21 09:17 Last Admin: 07/28/21 10:41 Dose: 2 mg Documented by: Melatonin (Melatonin 3 Mg Tab) 3 mg PO HS PRN PRN Reason: Sleep Stop: 08/28/21 22:47 Last Admin: 07/31/21 20:06 Dose: 3 mg Documented by: Ondansetron HCl (Ondansetron Inj 2 Mg/Ml 2 Ml Vial) 4 mg IV Q6H PRN PRN Reason: Nausea Stop: 08/26/21 10:59 Last Admin: 07/28/21 20:55 Dose: 4 mg Documented by: Pantoprazole Sodium (Pantoprazole 40 Mg Tab) 40 mg PO DAILY [facility] Stop: 08/26/21 08:59 Last Admin: 08/01/21 08:28 Dose: 40 mg Documented by: Phenol (Chloraseptic 1.4% Soln 180 Ml Btl) 1 sprays MT Q2H PRN PRN Reason: throat discomfort Stop: 08/29/21 05:43 Polyethylene Glycol (Polyethylene (Miralax) 17 Gm Pack) 17 gm PO DAILY PRN PRN Reason: Constipation Stop: 08/26/21 10:59 Tramadol HCl (Tramadol Hcl 50 Mg Tablet) 25 - 50 mg PO Q4H PRN PRN Reason: Pain Stop: 08/28/21 21:39 Last Admin: 08/01/21 12:48 Dose: 50 mg Documented by:
[2021-08-01] MEDS: MELATONIN 3 MG TAB PO PRN (21:00)
[2021-08-02] MEDS: dexAMETHasone 6 MG in SYRINGE 0 ML IV SCH (08:04)
[2021-08-02] MEDS: ADVANCED PROBIOTIC 1250 MG CAPSULE PO SCH ×3 (08:05→16:24)
[2021-08-02] MEDS: allopurinoL 300 MG TAB PO SCH (08:06)
[2021-08-02] MEDS: lisinopril 10 MG TAB PO SCH (08:06)
[2021-08-02] MEDS: ESCITALOPRAM OXALATE 10 MG TAB PO SCH (08:06)
[2021-08-02] MEDS: PANTOprazole 40 MG TAB PO SCH (08:07)
[2021-08-02] MEDS: BENZONATATE 100 MG CAPSULE PO SCH ×3 (08:13→21:06)
[2021-08-02 08:55] LABS: BUN Creatinine Ratio 24.3 (10-20); Calcium 9.4 mg/dl (8.5-10.1); Creatinine Clr Calc Pharmacy 134.2 ml/min; Est GFR (Non-African American) 105.2 ml/min; Magnesium 2.8 mg/dl (1.8-2.4); Potassium 3.6 mmol/L (3.5-5.1)
[2021-08-02] MEDS: ENOXAPARIN INJ 120 MG/0.8 ML SYR SQ SCH ×2 (10:19→21:06)
[2021-08-02] MEDS ORDERED: FUROSEMIDE 40 MG/4 ML VIAL IV ONE (14:36)
--- NOTE | 2021-08-02 14:36 | Hospitalist Progress Note ---
Date of Service August 02, 2021 Assessment & Plan (1) COVID: Plan: Multifocal COVID pneumonia COVID Screen:+ on 07/23/21 CTA:Extensive multifocal groundglass opacities with developing consolidation within the lungs consistent with viral pneumonia. No PE. Inflammatory markers are elevated Blood Cultures No growth to date Remdesivir was initiated later on discontinued as advised by the necktie maker Given Tocilizumab today (07/29/21) Encourage frequent Proning Lasix, Albuterol PRN Continue BiPAP as needed Much better clinically today and has been requiring 35% with 0.35 FiO2 oxygen to maintain saturation Much improved and requiring 6 L of oxygen to maintain saturation We will give another dose of Lasix today Clinically much better and requiring less oxygen to maintain saturation We will provide another dose of Lasix today DVT of the left calf Started on Lovenox 120 mg twice daily We will put her on Eliquis on discharge if recommended Electrolyte imbalance Hyponatremia Hypokalemia Hypochloremia Secondary to poor oral intake, GI losses Replace electrolytes as needed Electrolytes have been normalized-we will monitor Monitor PRP GERD Continue PPI Depression Continue home medication Gout Continue allopurinol Hypertension Continue lisinopril DVT Px: Lovenox SQ CODE STATUS Full code Admission and Anticipated Discharge Date Admission Date: July 27, 2021 Subjective 07/30/2021 The patient was seen and examined in telemetry unit and in Covid room He has been feeling a little better still requiring high flow oxygen to maintain saturation He was noted to have DVT of the left leg and full dose Lovenox was initiated Trying to be in prone position as long as he can 07/31/2021 The patient was seen and examined in telemetry unit and in the Covid room He has been feeling much better today Oxygen requirements has gone down to 35 L with 0.35% FiO2 08/01/2021 The patient was seen and examined in telemetry unit and in the Covid room He has been feeling much better today and is out of bed on a chair Requiring 6 L of oxygen to maintain saturation 08/02/2021 The patient was seen and examined in telemetry unit and in the Covid room He has been feeling much better and requiring up to 5 L of oxygen to maintain saturation Has been ambulating in the room without any difficulties Review of Systems Review of Systems: All systems reviewed and are unremarkable except as noted below Respiratory: Mild to moderate shortness of breath at rest Physical Exam Physical Exam: Sitting on a chair without any acute distress Constitutional: well developed, well nourished, + ill appearing and + morbidly obese Eyes: PERRL, conjunctivae normal, anicteric sclerae ENMT: external ear and nose normal, oropharynx normal Neck: trachea midline, no thyromegaly Respiratory: + respiratory distress Auscultation: + diminished lung sounds and + crackles (At the bases) Cardiovascular: Rate/Rhythm: regular rate and regular rhythm; not tachycardic Heart Sounds: normal S1 and normal S2; no murmur Extremities: + edema (Trace edema bilaterally) Gastrointestinal (Abdomen): Inspection/Auscultation: + abdomen distended and normal bowel sounds Percussion/Palpation: abdomen soft; abdomen nontender Musculoskeletal: No acute arthritis in any joint Neurologic: Alert, awake and oriented x3. No focal sensory and/or motor deficit appreciated Lymphatic: no cervical or axillary lymphadenopathy Results & Data Results & Data ([facility]) Vital Signs (Past 12 Hours) Vital Signs Temp Pulse Pulse Resp BP Pulse Ox 08/02/21 11:33 36.7 C 63 18 109/72 90 08/02/21 08:00 55 L 08/02/21 07:31 36.8 C 60 19 123/78 96 08/02/21 04:40 36.9 C 74 18 116/77 97 Laboratory Results [facility] 08/02/21 07:10 Sodium 132 L Potassium 3.6 Chloride 96 L Carbon Dioxide 27 BUN 23 H Creatinine 0.93 Glucose 99 Calcium 9.4 Medications Administered Current Inpatient Medications Acetaminophen (Acetaminophen 325 Mg Tab) 650 mg PO Q4H PRN PRN Reason: pain/fever Stop: 08/26/21 10:59 Last Admin: 07/29/21 08:13 Dose: 650 mg Documented by: Allopurinol (Allopurinol 300 Mg Tab) 300 mg PO DAILY [facility] Stop: 08/26/21 10:59 Last Admin: 08/02/21 08:06 Dose: 300 mg Documented by: Benzonatate (Benzonatate 100 Mg Capsule) 100 mg PO TID [facility] Stop: 08/26/21 13:59 Last Admin: 08/02/21 08:13 Dose: 100 mg Documented by: Enoxaparin Sodium (Enoxaparin Inj 120 Mg/0.8 Ml Syr) 120 mg SQ Q12H [facility] Stop: 08/29/21 21:59 Last Admin: 08/02/21 10:19 Dose: 120 mg Documented by: Escitalopram Oxalate (Escitalopram Oxalate 10 Mg Tab) 10 mg PO DAILY [facility] Stop: 08/26/21 10:59 Last Admin: 08/02/21 08:06 Dose: 10 mg Documented by: Guaifenesin/Dextromethorphan (Guaifenesin/Dextrom Syrup 100mg/10mg 5ml Udc) 5 ml PO Q6H PRN PRN Reason: Cough Stop: 08/26/21 13:00 Last Admin: 08/01/21 21:07 Dose: 5 ml Documented by: Dexamethasone 6 mg/ Syringe 1.5 mls @ 1 mls/min IV DAILY [facility] Stop: 08/06/21 08:59 Last Admin: 08/02/21 08:04 Dose: 1 mls/min Documented by: Lactobacillus Acidoph/Casei/Rhamnos (Advanced Probiotic 1250 Mg Capsule) 1 cap PO TIDM [facility]OSS Stop: 08/28/21 16:59 Last Admin: 08/02/21 12:13 Dose: 1 cap Documented by: Levalbuterol HCl (Levalbuterol Hcl 0.63 Mg/3 Ml Neb) 0.63 mg NEB QIDR PRN PRN Reason: Wheezing Stop: 08/26/21 10:59 Last Admin: 07/29/21 08:01 Dose: 0.63 mg Documented by: Lisinopril (Lisinopril 10 Mg Tab) 10 mg PO DAILY [facility] Stop: 08/26/21 10:59 Last Admin: 08/02/21 08:06 Dose: 10 mg Documented by: Loperamide HCl (Loperamide Hcl 2 Mg Cap) 2 mg PO Q6H PRN PRN Reason: Diarrhea Stop: 08/27/21 09:17 Last Admin: 07/28/21 10:41 Dose: 2 mg Documented by: Melatonin (Melatonin 3 Mg Tab) 3 mg PO HS PRN PRN Reason: Sleep Stop: 08/28/21 22:47 Last Admin: 08/01/21 21:00 Dose: 3 mg Documented by: Ondansetron HCl (Ondansetron Inj 2 Mg/Ml 2 Ml Vial) 4 mg IV Q6H PRN PRN Reason: Nausea Stop: 08/26/21 10:59 Last Admin: 07/28/21 20:55 Dose: 4 mg Documented by: Pantoprazole Sodium (Pantoprazole 40 Mg Tab) 40 mg PO DAILY [facility] Stop: 08/26/21 08:59 Last Admin: 08/02/21 08:07 Dose: 40 mg Documented by: Phenol (Chloraseptic 1.4% Soln 180 Ml Btl) 1 sprays MT Q2H PRN PRN Reason: throat discomfort Stop: 08/29/21 05:43 Polyethylene Glycol (Polyethylene (Miralax) 17 Gm Pack) 17 gm PO DAILY PRN PRN Reason: Constipation Stop: 08/26/21 10:59 Tramadol HCl (Tramadol Hcl 50 Mg Tablet) 25 - 50 mg PO Q4H PRN PRN Reason: Pain Stop: 08/28/21 21:39 Last Admin: 08/01/21 20:59 Dose: 50 mg Documented by:
[2021-08-03 07:34] LABS: BUN Creatinine Ratio 24.8 (10-20); Calcium 9.6 mg/dl (8.5-10.1); Creatinine Clr Calc Pharmacy 131.1 ml/min; Est GFR (African American) 118.9 ml/min; Est GFR (Non-African American) 102.6 ml/min
[2021-08-03 07:37] LABS: Magnesium 2.8 mg/dl (1.8-2.4)
[2021-08-03] MEDS: PANTOprazole 40 MG TAB PO SCH (09:08)
[2021-08-03] MEDS: ESCITALOPRAM OXALATE 10 MG TAB PO SCH (09:08)
[2021-08-03] MEDS: ADVANCED PROBIOTIC 1250 MG CAPSULE PO SCH ×3 (09:08→17:39)
[2021-08-03] MEDS: lisinopril 10 MG TAB PO SCH (09:08)
[2021-08-03] MEDS: dexAMETHasone 6 MG in SYRINGE 0 ML IV SCH (09:08)
[2021-08-03] MEDS: allopurinoL 300 MG TAB PO SCH (09:09)
[2021-08-03] MEDS: ENOXAPARIN INJ 120 MG/0.8 ML SYR SQ SCH ×2 (09:09→21:19)
[2021-08-03] MEDS: BENZONATATE 100 MG CAPSULE PO SCH ×3 (09:11→21:19)
[2021-08-03 09:41] LABS: Potassium 4.2 mmol/L (3.5-5.1)
[2021-08-03] MEDS ORDERED: FUROSEMIDE 40 MG/4 ML VIAL IV ONE (12:27)
--- NOTE | 2021-08-03 13:34 | XRay Report ---
XR chest 1V portable CLINICAL HISTORY: Covid pneumonia TECHNIQUE: Single frontal radiograph of the chest was obtained. Comparison: Comparison is made to chest one view 07/29/2021 FINDINGS: No lines and tubes are seen. The cardiomediastinal silhouette is stable. Bibasilar atelectasis is see n. There are multifocal airspace opacities which are somewhat improved from the prior exam. No eviden ce of pleural effusion or pneumothorax. IMPRESSION: Interval mild improvement of multifocal airspace opacities compatible with improving viral pneumonia. Likely atelectasis in the bilateral lung bases. ACT 112: Negative or not required by law. Electronically signed by: Stephen Deleon M.D. 08/03/2021 1:32 PM
--- NOTE | 2021-08-03 15:07 | Hospitalist Progress Note ---
Date of Service August 03, 2021 Assessment & Plan (1) COVID: Plan: Multifocal COVID pneumonia COVID Screen:+ on 07/23/21 CTA:Extensive multifocal groundglass opacities with developing consolidation within the lungs consistent with viral pneumonia. No PE. Inflammatory markers are elevated Blood Cultures No growth to date Remdesivir was initiated later on discontinued as advised by the toe sewer Given Tocilizumab today (07/29/21) Encourage frequent Proning Lasix, Albuterol PRN Continue BiPAP as needed Much better clinically today and has been requiring 35% with 0.35 FiO2 oxygen to maintain saturation Much improved and requiring 6 L of oxygen to maintain saturation We will give another dose of Lasix today Clinically much better and requiring less oxygen to maintain saturation Condition got worse last night and requiring up to 15 L to maintain saturation Chest x-ray today showed improvement but still will give another dose of Lasix DVT of the left calf Started on Lovenox 120 mg twice daily We will put her on Eliquis on discharge if recommended Electrolyte imbalance Hyponatremia Hypokalemia Hypochloremia Secondary to poor oral intake, GI losses Replace electrolytes as needed Electrolytes have been normalized-we will monitor Monitor PRP-electrolytes are good GERD Continue PPI Depression Continue home medication Gout Continue allopurinol Hypertension Continue lisinopril DVT Px: Lovenox SQ CODE STATUS Full code Admission and Anticipated Discharge Date Admission Date: July 27, 2021 Subjective 07/30/2021 The patient was seen and examined in telemetry unit and in Covid room He has been feeling a little better still requiring high flow oxygen to maintain saturation He was noted to have DVT of the left leg and full dose Lovenox was initiated Trying to be in prone position as long as he can 07/31/2021 The patient was seen and examined in telemetry unit and in the Covid room He has been feeling much better today Oxygen requirements has gone down to 35 L with 0.35% FiO2 08/01/2021 The patient was seen and examined in telemetry unit and in the Covid room He has been feeling much better today and is out of bed on a chair Requiring 6 L of oxygen to maintain saturation 08/02/2021 The patient was seen and examined in telemetry unit and in the Covid room He has been feeling much better and requiring up to 5 L of oxygen to maintain saturation Has been ambulating in the room without any difficulties 08/03/2021 The patient was seen and examined in telemetry unit and in the Covid room He was doing much better but last night when he is trying to move around his he desaturated and required up to 15 L of oxygen to maintain saturation X-ray today shows much improvement of his condition He denies any symptoms at rest Review of Systems Review of Systems: All systems reviewed and are unremarkable except as noted below Respiratory: Mild to moderate shortness of breath at rest Physical Exam Physical Exam: Sitting on a chair without any acute distress Constitutional: well developed, well nourished, + ill appearing and + morbidly obese Eyes: PERRL, conjunctivae normal, anicteric sclerae ENMT: external ear and nose normal, oropharynx normal Neck: trachea midline, no thyromegaly Respiratory: + respiratory distress Auscultation: + diminished lung sounds and + crackles (At the bases) Cardiovascular: Rate/Rhythm: regular rate and regular rhythm; not tachycardic Heart Sounds: normal S1 and normal S2; no murmur Extremities: + edema (Trace edema bilaterally) Gastrointestinal (Abdomen): Inspection/Auscultation: + abdomen distended and normal bowel sounds Percussion/Palpation: abdomen soft; abdomen nontender Musculoskeletal: No acute arthritis in any joint Neurologic: Alert, awake and oriented x3. No focal sensory or motor deficit appreciated Lymphatic: no cervical or axillary lymphadenopathy Results & Data Results & Data ([facility]) Vital Signs (Past 12 Hours) Vital Signs Temp Pulse Pulse Resp BP Pulse Ox 08/03/21 11:36 36.9 C 63 20 122/61 93 08/03/21 08:00 60 08/03/21 07:33 36.6 C 63 18 125/77 96 08/03/21 03:06 37.1 C 70 17 132/78 97 Laboratory Results [facility] 08/03/21 06:08 Sodium 130 L Potassium 4.2 D Chloride 96 L Carbon Dioxide 28 BUN 24 H Creatinine 0.95 Glucose 92 Calcium 9.6 Medications Administered Current Inpatient Medications Acetaminophen (Acetaminophen 325 Mg Tab) 650 mg PO Q4H PRN PRN Reason: pain/fever Stop: 08/26/21 10:59 Last Admin: 07/29/21 08:13 Dose: 650 mg Documented by: Allopurinol (Allopurinol 300 Mg Tab) 300 mg PO DAILY JOSS Stop: 08/26/21 10:59 Last Admin: 08/03/21 09:09 Dose: 300 mg Documented by: Benzonatate (Benzonatate 100 Mg Capsule) 100 mg PO TID JOSS Stop: 08/26/21 13:59 Last Admin: 08/03/21 14:17 Dose: 100 mg Documented by: Enoxaparin Sodium (Enoxaparin Inj 120 Mg/0.8 Ml Syr) 120 mg SQ Q12H JOSS Stop: 08/29/21 21:59 Last Admin: 08/03/21 09:09 Dose: 120 mg Documented by: Escitalopram Oxalate (Escitalopram Oxalate 10 Mg Tab) 10 mg PO DAILY JOSS Stop: 08/26/21 10:59 Last Admin: 08/03/21 09:08 Dose: 10 mg Documented by: Guaifenesin/Dextromethorphan (Guaifenesin/Dextrom Syrup 100mg/10mg 5ml Udc) 5 ml PO Q6H PRN PRN Reason: Cough Stop: 08/26/21 13:00 Last Admin: 08/01/21 21:07 Dose: 5 ml Documented by: Dexamethasone 6 mg/ Syringe 1.5 mls @ 1 mls/min IV DAILY JOSS Stop: 08/06/21 08:59 Last Admin: 08/03/21 09:08 Dose: 1 mls/min Documented by: Lactobacillus Acidoph/Casei/Rhamnos (Advanced Probiotic 1250 Mg Capsule) 1 cap PO TIDM JOSS Stop: 08/28/21 16:59 Last Admin: 08/03/21 12:10 Dose: 1 cap Documented by: Levalbuterol HCl (Levalbuterol Hcl 0.63 Mg/3 Ml Neb) 0.63 mg NEB QIDR PRN PRN Reason: Wheezing Stop: 08/26/21 10:59 Last Admin: 07/29/21 08:01 Dose: 0.63 mg Documented by: Lisinopril (Lisinopril 10 Mg Tab) 10 mg PO DAILY JOSS Stop: 08/26/21 10:59 Last Admin: 08/03/21 09:08 Dose: 10 mg Documented by: Loperamide HCl (Loperamide Hcl 2 Mg Cap) 2 mg PO Q6H PRN PRN Reason: Diarrhea Stop: 08/27/21 09:17 Last Admin: 07/28/21 10:41 Dose: 2 mg Documented by: Melatonin (Melatonin 3 Mg Tab) 3 mg PO HS PRN PRN Reason: Sleep Stop: 08/28/21 22:47 Last Admin: 08/01/21 21:00 Dose: 3 mg Documented by: Ondansetron HCl (Ondansetron Inj 2 Mg/Ml 2 Ml Vial) 4 mg IV Q6H PRN PRN Reason: Nausea Stop: 08/26/21 10:59 Last Admin: 07/28/21 20:55 Dose: 4 mg Documented by: Pantoprazole Sodium (Pantoprazole 40 Mg Tab) 40 mg PO DAILY JOSS Stop: 08/26/21 08:59 Last Admin: 08/03/21 09:08 Dose: 40 mg Documented by: Phenol (Chloraseptic 1.4% Soln 180 Ml Btl) 1 sprays MT Q2H PRN PRN Reason: throat discomfort Stop: 08/29/21 05:43 Polyethylene Glycol (Polyethylene (Miralax) 17 Gm Pack) 17 gm PO DAILY PRN PRN Reason: Constipation Stop: 08/26/21 10:59 Tramadol HCl (Tramadol Hcl 50 Mg Tablet) 25 - 50 mg PO Q4H PRN PRN Reason: Pain Stop: 08/28/21 21:39 Last Admin: 08/01/21 20:59 Dose: 50 mg Documented by:
[2021-08-04 07:01] LABS: BUN Creatinine Ratio 25.3 (10-20); Calcium 9.6 mg/dl (8.5-10.1); Creatinine Clr Calc Pharmacy 125.8 ml/min; Est GFR (African American) 113.1 ml/min; Est GFR (Non-African American) 97.6 ml/min; Magnesium 2.6 mg/dl (1.8-2.4); Phosphorus 3.8 mg/dl (2.5-4.9)
[2021-08-04] MEDS: ADVANCED PROBIOTIC 1250 MG CAPSULE PO SCH ×3 (08:36→17:38)
[2021-08-04] MEDS: PANTOprazole 40 MG TAB PO SCH (08:36)
[2021-08-04] MEDS: ESCITALOPRAM OXALATE 10 MG TAB PO SCH (08:36)
[2021-08-04] MEDS: dexAMETHasone 6 MG in SYRINGE 0 ML IV SCH (08:36)
[2021-08-04] MEDS: allopurinoL 300 MG TAB PO SCH (08:36)
[2021-08-04] MEDS: lisinopril 10 MG TAB PO SCH (08:36)
[2021-08-04] MEDS: BENZONATATE 100 MG CAPSULE PO SCH ×3 (10:16→21:28)
[2021-08-04] MEDS: ENOXAPARIN INJ 120 MG/0.8 ML SYR SQ SCH ×2 (10:17→21:28)
--- NOTE | 2021-08-04 14:08 | Hospitalist Progress Note ---
Date of Service August 04, 2021 Assessment & Plan (1) COVID: Plan: Multifocal COVID pneumonia COVID Screen:+ on 07/23/21 CTA:Extensive multifocal groundglass opacities with developing consolidation within the lungs consistent with viral pneumonia. No PE. Inflammatory markers are elevated Blood Cultures No growth to date Remdesivir was initiated later on discontinued as advised by the auto electrical technician Given Tocilizumab today (07/29/21) Encourage frequent Proning Lasix, Albuterol PRN Continue BiPAP as needed Much better clinically today and has been requiring 35% with 0.35 FiO2 oxygen to maintain saturation Much improved and requiring 6 L of oxygen to maintain saturation We will give another dose of Lasix today Clinically much better and requiring less oxygen to maintain saturation Condition got worse last night and requiring up to 15 L to maintain saturation Chest x-ray today showed improvement but still will give another dose of Lasix Desaturates with any activity-very slow improvement We will continue current management DVT of the left calf Started on Lovenox 120 mg twice daily We will put her on Eliquis on discharge if recommended Electrolyte imbalance Hyponatremia Hypokalemia Hypochloremia Secondary to poor oral intake, GI losses Replace electrolytes as needed Electrolytes have been normalized-we will monitor Monitor PRP-electrolytes are good Has hyponatremia-We will check it again tomorrow GERD Continue PPI Depression Continue home medication Gout Continue allopurinol Hypertension Continue lisinopril DVT Px: Lovenox SQ CODE STATUS Full code Admission and Anticipated Discharge Date Admission Date: July 27, 2021 Subjective 07/30/2021 The patient was seen and examined in telemetry unit and in Covid room He has been feeling a little better still requiring high flow oxygen to maintain saturation He was noted to have DVT of the left leg and full dose Lovenox was initiated Trying to be in prone position as long as he can 07/31/2021 The patient was seen and examined in telemetry unit and in the Covid room He has been feeling much better today Oxygen requirements has gone down to 35 L with 0.35% FiO2 08/01/2021 The patient was seen and examined in telemetry unit and in the Covid room He has been feeling much better today and is out of bed on a chair Requiring 6 L of oxygen to maintain saturation 08/02/2021 The patient was seen and examined in telemetry unit and in the Covid room He has been feeling much better and requiring up to 5 L of oxygen to maintain saturation Has been ambulating in the room without any difficulties 08/03/2021 The patient was seen and examined in telemetry unit and in the Covid room He was doing much better but last night when he is trying to move around his he desaturated and required up to 15 L of oxygen to maintain saturation X-ray today shows much improvement of his condition He denies any symptoms at rest 08/04/2021 The patient was seen and examined in telemetry unit and in the Covid room He has had another setback this morning with desaturation and has been requiring high flow oxygen to maintain saturation after that He is not yet ready to be moved around Review of Systems Review of Systems: All systems reviewed and are unremarkable except as noted below Respiratory: Mild to moderate shortness of breath at rest Physical Exam Physical Exam: Sitting on a chair without any acute distress Constitutional: well developed, well nourished, + ill appearing and + morbidly obese Eyes: PERRL, conjunctivae normal, anicteric sclerae ENMT: external ear and nose normal, oropharynx normal Neck: trachea midline, no thyromegaly Respiratory: + respiratory distress Auscultation: + diminished lung sounds and + crackles (At the bases) Cardiovascular: Rate/Rhythm: regular rate and regular rhythm; not tachycardic Heart Sounds: normal S1 and normal S2; no murmur Extremities: + edema (Trace edema bilaterally) Gastrointestinal (Abdomen): Inspection/Auscultation: + abdomen distended and normal bowel sounds Percussion/Palpation: abdomen soft; abdomen nontender Musculoskeletal: No acute arthritis in any joint Neurologic: Alert, awake and oriented x3. No focal sensory or motor deficit appreciated Lymphatic: no cervical or axillary lymphadenopathy Results & Data Results & Data ([facility]) Vital Signs (Past 12 Hours) Vital Signs Temp Pulse Pulse Resp BP Pulse Ox 08/04/21 12:04 36.9 C 80 22 134/77 90 08/04/21 08:16 36.6 C 69 22 130/87 92 08/04/21 07:34 60 08/04/21 03:08 36.8 C 67 22 127/72 90 Laboratory Results [facility] 08/04/21 05:50 Sodium 128 L Potassium 4.0 Chloride 94 L Carbon Dioxide 28 BUN 25 H Creatinine 0.99 Glucose 97 Calcium 9.6 Medications Administered Current Inpatient Medications Acetaminophen (Acetaminophen 325 Mg Tab) 650 mg PO Q4H PRN PRN Reason: pain/fever Stop: 08/26/21 10:59 Last Admin: 07/29/21 08:13 Dose: 650 mg Documented by: Allopurinol (Allopurinol 300 Mg Tab) 300 mg PO DAILY JOSS Stop: 08/26/21 10:59 Last Admin: 08/04/21 08:36 Dose: 300 mg Documented by: Benzonatate (Benzonatate 100 Mg Capsule) 100 mg PO TID JOSS Stop: 08/26/21 13:59 Last Admin: 08/04/21 10:16 Dose: 100 mg Documented by: Enoxaparin Sodium (Enoxaparin Inj 120 Mg/0.8 Ml Syr) 120 mg SQ Q12H JOSS Stop: 08/29/21 21:59 Last Admin: 08/04/21 10:17 Dose: 120 mg Documented by: Escitalopram Oxalate (Escitalopram Oxalate 10 Mg Tab) 10 mg PO DAILY JOSS Stop: 08/26/21 10:59 Last Admin: 08/04/21 08:36 Dose: 10 mg Documented by: Guaifenesin/Dextromethorphan (Guaifenesin/Dextrom Syrup 100mg/10mg 5ml Udc) 5 ml PO Q6H PRN PRN Reason: Cough Stop: 08/26/21 13:00 Last Admin: 08/01/21 21:07 Dose: 5 ml Documented by: Dexamethasone 6 mg/ Syringe 1.5 mls @ 1 mls/min IV DAILY JOSS Stop: 08/06/21 08:59 Last Admin: 08/04/21 08:36 Dose: 1 mls/min Documented by: Lactobacillus Acidoph/Casei/Rhamnos (Advanced Probiotic 1250 Mg Capsule) 1 cap PO TIDM JOSS Stop: 08/28/21 16:59 Last Admin: 08/04/21 12:03 Dose: 1 cap Documented by: Levalbuterol HCl (Levalbuterol Hcl 0.63 Mg/3 Ml Neb) 0.63 mg NEB QIDR PRN PRN Reason: Wheezing Stop: 08/26/21 10:59 Last Admin: 07/29/21 08:01 Dose: 0.63 mg Documented by: Lisinopril (Lisinopril 10 Mg Tab) 10 mg PO DAILY JOSS Stop: 08/26/21 10:59 Last Admin: 08/04/21 08:36 Dose: 10 mg Documented by: Loperamide HCl (Loperamide Hcl 2 Mg Cap) 2 mg PO Q6H PRN PRN Reason: Diarrhea Stop: 08/27/21 09:17 Last Admin: 07/28/21 10:41 Dose: 2 mg Documented by: Melatonin (Melatonin 3 Mg Tab) 3 mg PO HS PRN PRN Reason: Sleep Stop: 08/28/21 22:47 Last Admin: 08/01/21 21:00 Dose: 3 mg Documented by: Ondansetron HCl (Ondansetron Inj 2 Mg/Ml 2 Ml Vial) 4 mg IV Q6H PRN PRN Reason: Nausea Stop: 08/26/21 10:59 Last Admin: 07/28/21 20:55 Dose: 4 mg Documented by: Pantoprazole Sodium (Pantoprazole 40 Mg Tab) 40 mg PO DAILY JOSS Stop: 08/26/21 08:59 Last Admin: 08/04/21 08:36 Dose: 40 mg Documented by: Phenol (Chloraseptic 1.4% Soln 180 Ml Btl) 1 sprays MT Q2H PRN PRN Reason: throat discomfort Stop: 08/29/21 05:43 Polyethylene Glycol (Polyethylene (Miralax) 17 Gm Pack) 17 gm PO DAILY PRN PRN Reason: Constipation Stop: 08/26/21 10:59 Tramadol HCl (Tramadol Hcl 50 Mg Tablet) 25 - 50 mg PO Q4H PRN PRN Reason: Pain Stop: 08/28/21 21:39 Last Admin: 08/01/21 20:59 Dose: 50 mg Documented by:
[2021-08-04] MEDS: MELATONIN 3 MG TAB PO PRN (21:28)
[2021-08-05 06:13] LABS: Basophils # (auto) 0.01 K/uL (0-0.2); Basophils % (auto) 0.1 %; Eosinophils # (auto) 0.14 K/uL (0-0.5); Eosinophils % (auto) 0.8 %; Hematocrit (blood only) 43.2 % (42-52); Hemoglobin 15.2 g/dL (14.0-18.0); Immature Granulocytes # (auto) 0.09 K/uL (0.00-0.02); Immature Granulocytes % (auto) 0.5 %; Lymphocytes # (auto) 3.35 K/uL (1.2-3.4); Lymphocytes % (auto) 19.7 %; Mean Corpuscular Hemoglobin 28.9 pg (25-34); Mean Corpuscular Hgb Conc 35.2 g/dL (32-36); Mean Corpuscular Volume 82.1 fL (80-100); Monocytes # (auto) 1.85 K/uL (0.11-0.59); Monocytes % (auto) 10.9 %; Neutrophils # (auto) 11.58 K/uL (1.4-6.5); Platelet Count 295 K/uL (130-400); RDW Coefficient of Variation 13.4 % (11.5-14.5); RDW Standard Deviation 39.8 fL (36.4-46.3); Red Blood Count 5.26 M/uL (4.7-6.1); White Blood Count 17.02 K/uL (4.8-10.8)
[2021-08-05 06:36] LABS: BUN Creatinine Ratio 25.9 (10-20); Creatinine Clr Calc Pharmacy 154.2 ml/min; Est GFR (African American) 132.5 ml/min; Est GFR (Non-African American) 114.3 ml/min; Phosphorus 3.6 mg/dl (2.5-4.9); Potassium 4.4 mmol/L (3.5-5.1)
[2021-08-05] MEDS: dexAMETHasone 6 MG in SYRINGE 0 ML IV SCH (08:44)
[2021-08-05] MEDS: lisinopril 10 MG TAB PO SCH (08:45)
[2021-08-05] MEDS: ESCITALOPRAM OXALATE 10 MG TAB PO SCH (08:45)
[2021-08-05] MEDS: PANTOprazole 40 MG TAB PO SCH (08:45)
[2021-08-05] MEDS: ADVANCED PROBIOTIC 1250 MG CAPSULE PO SCH ×3 (08:45→17:45)
[2021-08-05] MEDS: allopurinoL 300 MG TAB PO SCH (08:46)
[2021-08-05] MEDS: BENZONATATE 100 MG CAPSULE PO SCH ×3 (08:46→21:04)
[2021-08-05] MEDS: ENOXAPARIN INJ 120 MG/0.8 ML SYR SQ SCH ×2 (10:46→21:04)
--- NOTE | 2021-08-05 13:15 | Hospitalist Progress Note ---
Date of Service August 05, 2021 Assessment & Plan (1) COVID: Plan: Multifocal COVID pneumonia COVID Screen:+ on 07/23/21 CTA:Extensive multifocal groundglass opacities with developing consolidation within the lungs consistent with viral pneumonia. No PE. 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 Given Tocilizumab today (07/29/21) Encourage frequent Proning Lasix, Albuterol PRN Continue BiPAP as needed Much better clinically today and has been requiring 35% with 0.35 FiO2 oxygen to maintain saturation Much improved and requiring 6 L of oxygen to maintain saturation We will give another dose of Lasix today Clinically much better and requiring less oxygen to maintain saturation Condition got worse last night and requiring up to 15 L to maintain saturation Chest x-ray today showed improvement but still will give another dose of Lasix Clinically much better and has been requiring only 1 to 2 L of oxygen at rest Will get to a steps O2 saturation tomorrow and possible discharge DVT of the left calf Started on Lovenox 120 mg twice daily We will put her on Eliquis on discharge if recommended Has some pain in the left calf we will give diclofenac sodium Electrolyte imbalance Hyponatremia Hypokalemia Hypochloremia Secondary to poor oral intake, GI losses Replace electrolytes as needed Electrolytes have been normalized-we will monitor Monitor PRP-electrolytes are good Has hyponatremia-We will check it again tomorrow We will try sodium 1 g twice daily and repeat PRP tomorrow GERD Continue PPI Depression Continue home medication Gout Continue allopurinol Hypertension Continue lisinopril DVT Px: Lovenox SQ CODE STATUS Full code Admission and Anticipated Discharge Date Admission Date: July 27, 2021 Subjective 07/30/2021 The patient was seen and examined in telemetry unit and in Covid room He has been feeling a little better still requiring high flow oxygen to maintain saturation He was noted to have DVT of the left leg and full dose Lovenox was initiated Trying to be in prone position as long as he can 07/31/2021 The patient was seen and examined in telemetry unit and in the Covid room He has been feeling much better today Oxygen requirements has gone down to 35 L with 0.35% FiO2 08/01/2021 The patient was seen and examined in telemetry unit and in the Covid room He has been feeling much better today and is out of bed on a chair Requiring 6 L of oxygen to maintain saturation 08/02/2021 The patient was seen and examined in telemetry unit and in the Covid room He has been feeling much better and requiring up to 5 L of oxygen to maintain saturation Has been ambulating in the room without any difficulties 08/03/2021 The patient was seen and examined in telemetry unit and in the Covid room He was doing much better but last night when he is trying to move around his he desaturated and required up to 15 L of oxygen to maintain saturation X-ray today shows much improvement of his condition He denies any symptoms at rest 08/04/2021 The patient was seen and examined in telemetry unit and in the Covid room He has had another setback this morning with desaturation and has been requiring high flow oxygen to maintain saturation after that He is not yet ready to be moved around 08/05/2021 The patient was seen and examined in telemetry unit and in the Covid room He has been feeling much better and requiring only 1 to 2 L of oxygen at rest but he still getting hypoxic with any movement We will try to get a to do steps O2 saturation tomorrow and possible discharge home He complains some pain in the left leg likely secondary to superficial phlebitis Review of Systems Review of Systems: All systems reviewed and are unremarkable except as noted below Respiratory: Mild to moderate shortness of breath at rest Physical Exam Physical Exam: Sitting on a chair without any acute distress Constitutional: well developed, well nourished, + ill appearing and + morbidly obese Eyes: PERRL, conjunctivae normal, anicteric sclerae ENMT: external ear and nose normal, oropharynx normal Neck: trachea midline, no thyromegaly Respiratory: + respiratory distress Auscultation: + diminished lung sounds and + crackles (At the bases) Cardiovascular: Rate/Rhythm: regular rate and regular rhythm; not tachycardic Heart Sounds: normal S1 and normal S2; no murmur Extremities: + edema (Trace edema bilaterally) Gastrointestinal (Abdomen): Inspection/Auscultation: + abdomen distended and normal bowel sounds Percussion/Palpation: abdomen soft; abdomen nontender Musculoskeletal: No acute arthritis in any joint Neurologic: Alert, awake and oriented x3. No focal sensory or motor deficit appreciated Psychiatric: A+Ox3, euthymic affect Lymphatic: no cervical or axillary lymphadenopathy Results & Data Results & Data ([facility]) Vital Signs (Past 12 Hours) Vital Signs Temp Pulse Pulse Resp BP Pulse Ox 08/05/21 12:49 37.0 C 70 20 115/49 L 92 08/05/21 08:12 36.9 C 71 20 110/50 L 96 08/05/21 07:22 63 08/05/21 03:18 36.8 C 70 21 134/76 95 Laboratory Results Short CBC 08/05/21 Range/Units 05:47 WBC 17.02 H (4.8-10.8) K/uL Hgb 15.2 (14.0-18.0) g/dL Hct 43.2 (42-52) % Plt Count 295 (130-400) K/uL BMP 08/05/21 05:47 Sodium 128 L Potassium 4.4 Chloride 97 L Carbon Dioxide 28 BUN 21 H Creatinine 0.81 Glucose 107 H Calcium 9.0 Medications Administered Current Inpatient Medications Acetaminophen (Acetaminophen 325 Mg Tab) 650 mg PO Q4H PRN PRN Reason: pain/fever Stop: 08/26/21 10:59 Last Admin: 07/29/21 08:13 Dose: 650 mg Documented by: Allopurinol (Allopurinol 300 Mg Tab) 300 mg PO DAILY JOSS Stop: 08/26/21 10:59 Last Admin: 08/05/21 08:46 Dose: 300 mg Documented by: Benzonatate (Benzonatate 100 Mg Capsule) 100 mg PO TID JOSS Stop: 08/26/21 13:59 Last Admin: 08/05/21 08:46 Dose: 100 mg Documented by: Diclofenac Sodium (Diclofenac Sod 1% Gel 100 Gm Tube) 2 gm EXT BID JOSS Stop: 09/04/21 20:59 Enoxaparin Sodium (Enoxaparin Inj 120 Mg/0.8 Ml Syr) 120 mg SQ Q12H JOSS Stop: 08/29/21 21:59 Last Admin: 08/05/21 10:46 Dose: 120 mg Documented by: Escitalopram Oxalate (Escitalopram Oxalate 10 Mg Tab) 10 mg PO DAILY JOSS Stop: 08/26/21 10:59 Last Admin: 08/05/21 08:45 Dose: 10 mg Documented by: Guaifenesin/Dextromethorphan (Guaifenesin/Dextrom Syrup 100mg/10mg 5ml Udc) 5 ml PO Q6H PRN PRN Reason: Cough Stop: 08/26/21 13:00 Last Admin: 08/01/21 21:07 Dose: 5 ml Documented by: Dexamethasone 6 mg/ Syringe 1.5 mls @ 1 mls/min IV DAILY JOSS Stop: 08/06/21 08:59 Last Admin: 08/05/21 08:44 Dose: 1 mls/min Documented by: Lactobacillus Acidoph/Casei/Rhamnos (Advanced Probiotic 1250 Mg Capsule) 1 cap PO TIDM JOSS Stop: 08/28/21 16:59 Last Admin: 08/05/21 08:45 Dose: 1 cap Documented by: Levalbuterol HCl (Levalbuterol Hcl 0.63 Mg/3 Ml Neb) 0.63 mg NEB QIDR PRN PRN Reason: Wheezing Stop: 08/26/21 10:59 Last Admin: 07/29/21 08:01 Dose: 0.63 mg Documented by: Lisinopril (Lisinopril 10 Mg Tab) 10 mg PO DAILY JOSS Stop: 08/26/21 10:59 Last Admin: 08/05/21 08:45 Dose: 10 mg Documented by: Loperamide HCl (Loperamide Hcl 2 Mg Cap) 2 mg PO Q6H PRN PRN Reason: Diarrhea Stop: 08/27/21 09:17 Last Admin: 07/28/21 10:41 Dose: 2 mg Documented by: Melatonin (Melatonin 3 Mg Tab) 3 mg PO HS PRN PRN Reason: Sleep Stop: 08/28/21 22:47 Last Admin: 08/04/21 21:28 Dose: 3 mg Documented by: Ondansetron HCl (Ondansetron Inj 2 Mg/Ml 2 Ml Vial) 4 mg IV Q6H PRN PRN Reason: Nausea Stop: 08/26/21 10:59 Last Admin: 07/28/21 20:55 Dose: 4 mg Documented by: Pantoprazole Sodium (Pantoprazole 40 Mg Tab) 40 mg PO DAILY JOSS Stop: 08/26/21 08:59 Last Admin: 08/05/21 08:45 Dose: 40 mg Documented by: Phenol (Chloraseptic 1.4% Soln 180 Ml Btl) 1 sprays MT Q2H PRN PRN Reason: throat discomfort Stop: 08/29/21 05:43 Polyethylene Glycol (Polyethylene (Miralax) 17 Gm Pack) 17 gm PO DAILY PRN PRN Reason: Constipation Stop: 08/26/21 10:59 Tramadol HCl (Tramadol Hcl 50 Mg Tablet) 25 - 50 mg PO Q4H PRN PRN Reason: Pain Stop: 08/28/21 21:39 Last Admin: 08/01/21 20:59 Dose: 50 mg Documented by:
[2021-08-05] MEDS ORDERED: SODIUM CHLORIDE 1 GM TABLET PO STA (13:17)
[2021-08-05] MEDS: SODIUM CHLORIDE 1 GM TABLET PO SCH (21:04)
[2021-08-05] MEDS: MELATONIN 3 MG TAB PO PRN (21:04)
[2021-08-05] MEDS: DICLOFENAC SOD 1% GEL 100 GM TUBE EXT SCH (21:04)
[2021-08-06 07:19] LABS: Basophils # (auto) 0.02 K/uL (0-0.2); Basophils % (auto) 0.1 %; Eosinophils # (auto) 0.11 K/uL (0-0.5); Eosinophils % (auto) 0.7 %; Hematocrit (blood only) 39.5 % (42-52); Hemoglobin 14.1 g/dL (14.0-18.0); Immature Granulocytes # (auto) 0.09 K/uL (0.00-0.02); Immature Granulocytes % (auto) 0.6 %; Lymphocytes # (auto) 3.33 K/uL (1.2-3.4); Lymphocytes % (auto) 22.1 %; Mean Corpuscular Hemoglobin 29.4 pg (25-34); Mean Corpuscular Hgb Conc 35.7 g/dL (32-36); Mean Corpuscular Volume 82.3 fL (80-100); Mean Platelet Volume 10.1 fL (7.4-10.4); Monocytes # (auto) 1.81 K/uL (0.11-0.59); Neutrophils # (auto) 9.68 K/uL (1.4-6.5); Neutrophils % (auto) 64.5 %; Platelet Count 275 K/uL (130-400); RDW Coefficient of Variation 13.5 % (11.5-14.5); RDW Standard Deviation 40.5 fL (36.4-46.3); White Blood Count 15.04 K/uL (4.8-10.8)
[2021-08-06 08:05] LABS: BUN Creatinine Ratio 24.9 (10-20); Calcium 9.3 mg/dl (8.5-10.1); Creatinine Clr Calc Pharmacy 161.1 ml/min; Est GFR (African American) 134.6 ml/min; Est GFR (Non-African American) 116.1 ml/min; Magnesium 2.1 mg/dl (1.8-2.4); Potassium 4.2 mmol/L (3.5-5.1)
[2021-08-06 08:06] LABS: Phosphorus 3.8 mg/dl (2.5-4.9)
[2021-08-06] MEDS: allopurinoL 300 MG TAB PO SCH (09:02)
[2021-08-06] MEDS: SODIUM CHLORIDE 1 GM TABLET PO SCH (09:02)
[2021-08-06] MEDS: ADVANCED PROBIOTIC 1250 MG CAPSULE PO SCH ×2 (09:02→13:05)
[2021-08-06] MEDS: ESCITALOPRAM OXALATE 10 MG TAB PO SCH (09:03)
[2021-08-06] MEDS: PANTOprazole 40 MG TAB PO SCH (09:03)
[2021-08-06] MEDS: lisinopril 10 MG TAB PO SCH (09:03)
[2021-08-06] MEDS: ENOXAPARIN INJ 120 MG/0.8 ML SYR SQ SCH (09:04)
[2021-08-06] MEDS: BENZONATATE 100 MG CAPSULE PO SCH ×2 (09:04→13:05)
[2021-08-06] MEDS: DICLOFENAC SOD 1% GEL 100 GM TUBE EXT SCH (09:04)
--- NOTE | 2021-08-06 13:21 | Hospitalist Progress Note ---
Date of Service August 06, 2021 Assessment & Plan (1) COVID: Plan: Multifocal COVID pneumonia COVID Screen:+ on 07/23/21 CTA:Extensive multifocal groundglass opacities with developing consolidation within the lungs consistent with viral pneumonia. No PE. Inflammatory markers are elevated Blood Cultures No growth to date Remdesivir was initiated later on discontinued as advised by the soliciting freight agent Given Tocilizumab today (07/29/21) Encourage frequent Proning Lasix, Albuterol PRN Continue BiPAP as needed Much better clinically today and has been requiring 35% with 0.35 FiO2 oxygen to maintain saturation Much improved and requiring 6 L of oxygen to maintain saturation We will give another dose of Lasix today Clinically much better and requiring less oxygen to maintain saturation Condition got worse last night and requiring up to 15 L to maintain saturation Chest x-ray today showed improvement but still will give another dose of Lasix Saturating normally on room air Denies any symptoms He will require 1 L of oxygen to maintain saturation with ambulation Will be discharged home this afternoon DVT of the left calf Started on Lovenox 120 mg twice daily We will put her on Eliquis on discharge if recommended Has some pain in the left calf we will give diclofenac sodium Eliquis has been started and was advised to continue for 3 months in total Electrolyte imbalance Hyponatremia Hypokalemia Hypochloremia Secondary to poor oral intake, GI losses Replace electrolytes as needed Electrolytes have been normalized-we will monitor Monitor PRP-electrolytes are good Has hyponatremia-We will check it again tomorrow We will try sodium 1 g twice daily and repeat PRP tomorrow Sodium level has been coming up GERD Continue PPI Depression Continue home medication Gout Continue allopurinol Hypertension Continue lisinopril DVT Px: Lovenox SQ CODE STATUS Full code Admission and Anticipated Discharge Date Admission Date: July 27, 2021 Subjective 07/30/2021 The patient was seen and examined in telemetry unit and in Covid room He has been feeling a little better still requiring high flow oxygen to maintain saturation He was noted to have DVT of the left leg and full dose Lovenox was initiated Trying to be in prone position as long as he can 07/31/2021 The patient was seen and examined in telemetry unit and in the Covid room He has been feeling much better today Oxygen requirements has gone down to 35 L with 0.35% FiO2 08/01/2021 The patient was seen and examined in telemetry unit and in the Covid room He has been feeling much better today and is out of bed on a chair Requiring 6 L of oxygen to maintain saturation 08/02/2021 The patient was seen and examined in telemetry unit and in the Covid room He has been feeling much better and requiring up to 5 L of oxygen to maintain saturation Has been ambulating in the room without any difficulties 08/03/2021 The patient was seen and examined in telemetry unit and in the Covid room He was doing much better but last night when he is trying to move around his he desaturated and required up to 15 L of oxygen to maintain saturation X-ray today shows much improvement of his condition He denies any symptoms at rest 08/04/2021 The patient was seen and examined in telemetry unit and in the Covid room He has had another setback this morning with desaturation and has been requiring high flow oxygen to maintain saturation after that He is not yet ready to be moved around 08/05/2021 The patient was seen and examined in telemetry unit and in the Covid room He has been feeling much better and requiring only 1 to 2 L of oxygen at rest but he still getting hypoxic with any movement We will try to get a to do steps O2 saturation tomorrow and possible discharge home He complains some pain in the left leg likely secondary to superficial phlebitis 08/06/2021 The patient was seen and examined in telemetry unit and in the Covid room He has been feeling a lot better and saturating normally on room air Denies any significant symptoms He will require 1 L of oxygen to maintain saturation with activity Review of Systems Review of Systems: All systems reviewed and are unremarkable except as noted below Respiratory: No shortness of breath at rest Physical Exam Physical Exam: Lying in bed without any acute distress Constitutional: well developed, well nourished, + ill appearing and + morbidly obese Eyes: PERRL, conjunctivae normal, anicteric sclerae ENMT: external ear and nose normal, oropharynx normal Neck: trachea midline, no thyromegaly Respiratory: no respiratory distress Auscultation: + diminished lung sounds; no crackles (At the bases) Cardiovascular: Rate/Rhythm: regular rate and regular rhythm; not tachycardic Heart Sounds: normal S1 and normal S2; no murmur Extremities: + edema (Trace edema bilaterally) Gastrointestinal (Abdomen): Inspection/Auscultation: + abdomen distended and normal bowel sounds Percussion/Palpation: abdomen soft; abdomen nontender Musculoskeletal: No acute arthritis in any joint Neurologic: Alert, awake and oriented x3. No focal sensory and motor deficit appreciated Psychiatric: A+Ox3, euthymic affect Lymphatic: no cervical or axillary lymphadenopathy Results & Data Results & Data ([facility]) Vital Signs (Past 12 Hours) Vital Signs Temp Pulse Pulse Pulse Pulse Pulse Pulse 08/06/21 12:41 37.1 C 87 08/06/21 08:11 101 H 96 H 99 H 87 08/06/21 07:00 69 08/06/21 06:39 36.6 C 80 08/06/21 03:32 36.8 C 76 Resp Resp Resp Resp Resp BP BP 08/06/21 12:41 18 145/85 H 08/06/21 08:11 18 18 16 14 08/06/21 07:00 08/06/21 06:39 20 156/94 H 08/06/21 03:32 19 166/95 H Pulse Ox Pulse Ox Pulse Ox Pulse Ox Pulse Ox 08/06/21 12:41 94 08/06/21 08:11 90 86 L 90 93 08/06/21 07:00 08/06/21 06:39 92 08/06/21 03:32 95 Laboratory Results Short CBC 08/06/21 Range/Units 06:30 WBC 15.04 H (4.8-10.8) K/uL Hgb 14.1 (14.0-18.0) g/dL Hct 39.5 L (42-52) % Plt Count 275 (130-400) K/uL BMP 08/06/21 06:30 Sodium 131 L Potassium 4.2 Chloride 99 Carbon Dioxide 23 BUN 20 H Creatinine 0.78 Glucose 94 Calcium 9.3 Medications Administered Current Inpatient Medications Acetaminophen (Acetaminophen 325 Mg Tab) 650 mg PO Q4H PRN PRN Reason: pain/fever Stop: 08/26/21 10:59 Last Admin: 07/29/21 08:13 Dose: 650 mg Documented by: Allopurinol (Allopurinol 300 Mg Tab) 300 mg PO DAILY [facility] Stop: 08/26/21 10:59 Last Admin: 08/06/21 09:02 Dose: 300 mg Documented by: Apixaban (Apixaban 5 Mg Tablet) 10 mg PO BID JOSS Stop: 08/13/21 09:01 Benzonatate (Benzonatate 100 Mg Capsule) 100 mg PO TID JOSS Stop: 08/26/21 13:59 Last Admin: 08/06/21 13:05 Dose: 100 mg Documented by: Diclofenac Sodium (Diclofenac Sod 1% Gel 100 Gm Tube) 2 gm EXT BID JOSS Stop: 09/04/21 20:59 Last Admin: 08/06/21 09:04 Dose: 2 gm Documented by: Escitalopram Oxalate (Escitalopram Oxalate 10 Mg Tab) 10 mg PO DAILY JOSS Stop: 08/26/21 10:59 Last Admin: 08/06/21 09:03 Dose: 10 mg Documented by: Guaifenesin/Dextromethorphan (Guaifenesin/Dextrom Syrup 100mg/10mg 5ml Udc) 5 ml PO Q6H PRN PRN Reason: Cough Stop: 08/26/21 13:00 Last Admin: 08/01/21 21:07 Dose: 5 ml Documented by: Lactobacillus Acidoph/Casei/Rhamnos (Advanced Probiotic 1250 Mg Capsule) 1 cap PO TIDM JOSS Stop: 08/28/21 16:59 Last Admin: 08/06/21 13:05 Dose: 1 cap Documented by: Levalbuterol HCl (Levalbuterol Hcl 0.63 Mg/3 Ml Neb) 0.63 mg NEB QIDR PRN PRN Reason: Wheezing Stop: 08/26/21 10:59 Last Admin: 07/29/21 08:01 Dose: 0.63 mg Documented by: Lisinopril (Lisinopril 10 Mg Tab) 10 mg PO DAILY JOSS Stop: 08/26/21 10:59 Last Admin: 08/06/21 09:03 Dose: 10 mg Documented by: Loperamide HCl (Loperamide Hcl 2 Mg Cap) 2 mg PO Q6H PRN PRN Reason: Diarrhea Stop: 08/27/21 09:17 Last Admin: 07/28/21 10:41 Dose: 2 mg Documented by: Melatonin (Melatonin 3 Mg Tab) 3 mg PO HS PRN PRN Reason: Sleep Stop: 08/28/21 22:47 Last Admin: 08/05/21 21:04 Dose: 3 mg Documented by: Ondansetron HCl (Ondansetron Inj 2 Mg/Ml 2 Ml Vial) 4 mg IV Q6H PRN PRN Reason: Nausea Stop: 08/26/21 10:59 Last Admin: 07/28/21 20:55 Dose: 4 mg Documented by: Pantoprazole Sodium (Pantoprazole 40 Mg Tab) 40 mg PO DAILY JOSS Stop: 08/26/21 08:59 Last Admin: 08/06/21 09:03 Dose: 40 mg Documented by: Phenol (Chloraseptic 1.4% Soln 180 Ml Btl) 1 sprays MT Q2H PRN PRN Reason: throat discomfort Stop: 08/29/21 05:43 Polyethylene Glycol (Polyethylene (Miralax) 17 Gm Pack) 17 gm PO DAILY PRN PRN Reason: Constipation Stop: 08/26/21 10:59 Sodium Chloride (Sodium Chloride 1 Gm Tablet) 1 gm PO BID JOSS Stop: 09/04/21 20:59 Last Admin: 08/06/21 09:02 Dose: 1 gm Documented by: Tramadol HCl (Tramadol Hcl 50 Mg Tablet) 25 - 50 mg PO Q4H PRN PRN Reason: Pain Stop: 08/28/21 21:39 Last Admin: 08/01/21 20:59 Dose: 50 mg Documented by:
[2021-08-06] MEDS ORDERED: APIXABAN 5 MG TABLET PO SCH (21:00)
--- NOTE | 2021-08-07 07:38 | Discharge Summary ---
Date of Service August 07, 2021 Admission HPI Per Admitting Provider Patient is a 35-year-old male with history of GERD, hypertension, GERD, depression and other medical problems presents with history of worsening cough, shortness of breath since about 1 week duration. Patient reports associated fever since Friday which currently resolved. He also states having nausea, vomiting, diarrhea since Friday. He was tested positive for Covid on 07/23/2021 and was prescribed a Medrol Dosepak and an inhaler which he has been using since 4 days duration. Given worsening of his symptoms, patient came to ED for further evaluation. He admits to have contact with his who is posit bunny for Covid as well. She states having pleuritic kind of chest pain associated with deep breathing and cough. Also reports headache but no change in vision, loss of consciousness, neck stiffness. He feels tired and has generalized weakness, runny nose and very poor appetite with loss of taste since 1 week duration. Denies any history of palpitations, dizziness, pedal edema, hemoptysis, head trauma, abdominal pain, blood in stools, dysuria, hematuria. Admission Exam Per Admitting Provider Physical Exam: Physical Exam: Vitals signs as noted above General Appearance:Morbidly Obese, no apparent distress Head: normocephalic, Atraumatic Eyes: normal inspection, EOMI Neck: supple, Trachea midline Respiratory/Chest: Decreased breath sounds, CTA, No accessory muscle use Cardiovascular: S1, S2, No murmur Abdomen/GI:Soft, Non tender, Bowel sounds present Extremities/Musculoskeletal:normal inspection, no edema Neurologic/Psych:AAOX3, grossly no focal neurological deficits Skin: normal color, warm Principal Diagnosis Pneumonia secondary to COVID-19 virus infection, DVT of the left calf Discharge Exam Lying in bed without any acute distress Constitutional well developed, well nourished, + ill appearing and + morbidly obese Eyes PERRL, conjunctivae normal, anicteric sclerae ENMT external ear and nose normal, oropharynx normal Neck trachea midline, no thyromegaly Respiratory no respiratory distress Auscultation: + diminished lung sounds; no crackles (At the bases) Cardiovascular Rate/Rhythm: regular rate and regular rhythm; not tachycardic Heart Sounds: normal S1 and normal S2; no murmur Extremities: + edema (Trace edema bilaterally) Gastrointestinal (Abdomen) Inspection/Auscultation: + abdomen distended and normal bowel sounds Percussion/Palpation: abdomen soft; abdomen nontender Psychiatric A+Ox3, euthymic affect Lymphatic no cervical or axillary lymphadenopathy Discharge Data Allergies Allergy/AdvReac Type Severity Reaction Status Date / Time No Known Allergies Allergy Unverified 07/27/21 07:08 Consultations 07/27/21 06:43 ED Decision to Admit Stat 07/29/21 07:52 Consult Pulmonology Routine 07/29/21 13:15 Consult Electrician Journeyman Wireman Routine Ordered Studies 07/27/21 10:17 CT angio chest PE protocol Urgent 07/30/21 05:44 US venous doppler LE LT Stat Hospital Course (1) COVID: Multifocal COVID pneumonia COVID Screen:+ on 07/23/21 CTA:Extensive multifocal groundglass opacities with developing consolidation within the lungs consistent with viral pneumonia. No PE. Inflammatory markers are elevated Blood Cultures No growth to date Remdesivir was initiated later on discontinued as advised by the flotation tender helper Given Tocilizumab today (07/29/21) Encourage frequent Proning Lasix, Albuterol PRN Continue BiPAP as needed Much better clinically today and has been requiring 35% with 0.35 FiO2 oxygen to maintain saturation Much improved and requiring 6 L of oxygen to maintain saturation We will give another dose of Lasix today Clinically much better and requiring less oxygen to maintain saturation Condition got worse last night and requiring up to 15 L to maintain saturation Chest x-ray today showed improvement but still will give another dose of Lasix Saturating normally on room air Denies any symptoms He will require 1 L of oxygen to maintain saturation with ambulation Will be discharged home this afternoon DVT of the left calf Started on Lovenox 120 mg twice daily We will put her on Eliquis on discharge if recommended Has some pain in the left calf we will give diclofenac sodium Eliquis has been started and was advised to continue for 3 months in total Electrolyte imbalance Hyponatremia Hypokalemia Hypochloremia Secondary to poor oral intake, GI losses Replace electrolytes as needed Electrolytes have been normalized-we will monitor Monitor PRP-electrolytes are good Has hyponatremia-We will check it again tomorrow We will try sodium 1 g twice daily and repeat PRP tomorrow Sodium level has been coming up GERD Continue PPI Depression Continue home medication Gout Continue allopurinol Hypertension Continue lisinopril DVT Px: Lovenox SQ CODE STATUS Full code Total Time Total Time Spent Total Time Spent (In Minutes): 35 minutes Discharge Plan Discharge Items Patient Disposition: Home - Self-Care Reason For Visit: COVID PNEUMONIA Discharge Diagnosis: Pneumonia secondary to COVID-19 virus infection, DVT of the left calf Condition on Discharge: Good Activity: Resume your previous activity Non-emergency contact: Primary Care Provider Call non-emergency contact if: you have any medication questions and your symptoms worsen Follow-up/Referrals: Mark Garcia MD [Hospitalist] - (Date & Time 08/10/2021 1:40 PM Provider Mark Garcia MD Department Family Medicine [facility] ) Diet: Regular Addtl Attending Provider Instructions: Please take precautions to avoid fall Take it easy for the next few days Please follow the isolation protocol as per CDC for 10 more days Keep appointments with your primary care provider Home Isolation COVID-19 Instructions The following information about Home Isolation is from the CDC Website: https://www.cdc.gov/coronavirus/2019-ncov/hcp/rvxzjeso-ckzhmpd-sufmde.html Stay home except to get medical care People who are mildly ill with COVID-19 are able to isolate at home during their illness. You should restrict activities outside your home, except for getting medical care. Do not go to work, school, or public areas. Avoid using public transportation, ride-sharing, or taxis. Separate yourself from other people and animals in your home People: As much as possible, you should stay in a specific room and away from other people in your home. Also, you should use a separate bathroom, if available. Animals: You should restrict contact with pets and other animals while you are sick with COVID-19, just like you would around other people. Although there have not been reports of pets or other animals becoming sick with COVID-19, it is still recommended that people sick with COVID-19 limit contact with animals until more information is known about the virus. When possible, have another member of your household care for your animals while you are sick. If you are sick with COVID-19, avoid contact with your pet, including petting, snuggling, being kissed or licked, and sharing food. If you must care for your pet or be around animals while you are sick, wash your hands before and after you interact with pets and wear a face mask. Call ahead before visiting your doctor If you have a medical appointment, call the healthcare provider and tell them that you have or may have COVID-19. This will help the healthcare providers office take steps to keep other people from getting infected or exposed. Wear a face mask You should wear a face mask when you are around other people (e.g., sharing a room or vehicle) or pets and before you enter a healthcare providers office. If you are not able to wear a face mask (for example, because it causes trouble breathing), then people who live with you should not stay in the same room with you, or they should wear a face mask if they enter your room. Cover your coughs and sneezes Cover your mouth and nose with a tissue when you cough or sneeze. Throw used tissues in a lined trash can. Immediately wash your hands with soap and water for at least 20 seconds or, if soap and water are not available, clean your hands with an alcohol-based hand vehicle body builder that contains at least 60% alcohol. Clean your hands often Wash your hands often with soap and water for at least 20 seconds, especially after blowing your nose, coughing, or sneezing; going to the bathroom; and before eating or preparing food. If soap and water are not readily available, use an alcohol-based hand vehicle body builder with at least 60% alcohol, covering all surfaces of your hands and rubbing them together until they feel dry. Soap and water are the best option if hands are visibly dirty. Avoid touching your eyes, nose, and mouth with unwashed hands. Avoid sharing personal household items You should not share dishes, drinking glasses, cups, eating utensils, towels, or bedding with other people or pets in your home. After using these items, they should be washed thoroughly with soap and water. Clean all high-touch surfaces everyday High touch surfaces include counters, tabletops, doorknobs, bathroom fixtures, toilets, phones, keyboards, tablets, and bedside tables. Also, clean any surfaces that may have blood, stool, or body fluids on them. Use a household cleaning spray or wipe, according to the label instructions. Labels contain instructions for safe and effective use of the cleaning product including precautions you should take when applying the product, such as wearing gloves and making sure you have good ventilation during use of the product. Monitor your symptoms Seek prompt medical attention if your illness is worsening (e.g., difficulty breathing).Beforeseeking care, call your healthcare provider and tell them that you have, or are being evaluated for, COVID-19. Put on a face mask before you enter the facility. These steps will help the healthcare providers office to keep other people in the office or waiting room from getting infected or exposed. Ask your healthcare provider to call the local or state health department. Persons who are placed under active monitoring or facilitated self- monitoring should follow instructions provided by their local health department or occupational health professionals, as appropriate. When working with your local health department check their available hours. If you have a medical emergency and need to call 911, notify the dispatch personnel that you have, or are being evaluated for COVID-19. If possible, put on a face mask before emergency medical services arrive. Discontinuing home isolation Patients with confirmed COVID-19 should remain under home isolation precautions until the risk of secondary transmission to others is thought to be low. The decision to discontinue home isolation precautions should be made on a [id number] basis, in consultation with healthcare providers and [facility] and [facility] health departments. Pending Studies at Discharge: No Stand-Alone Forms: [facility] [place], Smoking Cessation Medications and DC Order Prescriptions: New apixaban 5 mg tablet 10 mg PO BID Qty: 42 RF: 0 pantoprazole 40 mg Tablet,Delayed Release (Dr/Ec) 40 mg PO DAILY Qty: 30 RF: 0 Continued methylprednisolone [Medrol (Michael)] 4 mg tablets,dose pack See Rx Instructions .ROUTE .COMPLEX Qty: 21 RF: 0 albuterol sulfate 90 mcg/actuation HFA aerosol inhaler 2 inh inhalation Q4H PRN (Reason: shortness of breath or wheezing) Qty: 6.7 RF: 0 meloxicam 15 mg tablet 15 mg PO DAILY RF: 0 lisinopril 10 mg tablet 10 mg PO DAILY RF: 0 omeprazole 20 mg capsule,delayed release(DR/EC) 230 mg PO DAILY RF: 0 allopurinol 300 mg tablet 300 mg PO DAILY RF: 0 escitalopram oxalate 10 mg tablet 10 mg PO DAILY RF: 0 Discharge Orders: Discharge Order (Routine); Ordered 08/06/21 Ordered By: Karen Hardin/Other Patient Handouts: Using Blood Thinners (Anticoagulants) Admission Data Admit Date/Time: 07/27/21 08:31 Attending Provider: Karen Maza Admit Provider: Js Vergara Primary Care Provider: PCP,NO Other Providers: Fly Navarrete ; Minh Castañeda ; Joon Hsu ; Js Vergara Other Interventions: Discharge Summary Assessment (RN) Last Done: 08/06/21 14:54
== END 2021-08-06 15:45 | disposition home or self-care (01) | DRG 177 ==
LOC: EDSEX → ED 03:57 → SUATTDRO 08:31 → EDINP 08:31 → 2S 10:50 → 2E 07-29 12:08